=== PATIENT | male | born 1950 | race Caucasian/White ===

== ENCOUNTER 2022-05-13 13:39 | Inpatient (IN) | payer MEDICARE, MEDICAID, SELFPAY ==
[2022-05-13] VITALS (10 sets, daily range): BP systolic 150–178; BP diastolic 85–100; PULSE 68–76; RESP 14–18; TEMP 36.1–37.1; O2SAT 95–100
--- NOTE | 2022-05-13 | SCC_ITS ---
Procedure done: Application of multiplane external fixator. CPT code 33546 Repair of complex open wound right ankle and leg. CPT code 97416 and 23149 and 10340 29.8 seconds of fluoroscopic guidance, for a cumulative dose of 0.92 mGy, was provided to Dr. Scruggs by the radiology department. C-arm images of the RIGHT lower leg were saved for the patient's permanent record. [facility]
--- NOTE | 2022-05-13 | XR_ITS ---
WS: [id number] Exam: XR tibia fibula LT 2V [id number] Date/Time of Exam: 05/13/2022 12:00 AM Reason For Exam: external fixator. There are 2 anterior posterior intraoperative images of the left lower leg submitted for evaluation. The first image depicts external fixator pins overlying the midshaft of the tibia. The second image visualizes the ankle and again shows fractures of the medial malleolus and lower metadiaphysis of the tibia. There may be an external fixator screw in the region of the calcaneus. No other significant f inding on this limited series.
--- NOTE | 2022-05-13 | SCC_ITS ---
Procedure done: Removal of external fixator, left lower extremity under anesthesia. CPT code 13646 Open reduction internal fixation left trimalleolar fracture. CPT 48211 1.16 minutes of fluoroscopic guidance, for a cumulative dose of 2.326 mGy, was provided to Dr. Scruggs by the radiology department. C-arm images of the LEFT tibia fibula were saved for the patient's permanent record. [facility]
--- NOTE | 2022-05-13 13:41 | XR_ITS ---
WS: [id number] Exam: XR ankle LT 2V [id number] Date/Time of Exam: 05/13/2022 1:41 PM Reason For Exam: injury There is a trimalleolar fracture of the left ankle with medial dislocation of the tibia upon the xiomara r dome. Displaced fractures of the posterior tibial shelf, the medial malleolus and the lower fibular noted. The fracture may be open along the medial malleolus. XR/XR ankle LT 2V [id number] IMPRESSION: 1. Displaced trimalleolar fracture with medial dislocation of the tibia upon th e talar dome.
--- NOTE | 2022-05-13 14:00 | ECG_ITS ---
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 Measurements Intervals [place] Rate: 64 P: 61 [place]: 170 QRS: 18 QRSD: 98 T: 90 QT: 422 QTc: 435 Interpretive Statements SINUS RHYTHM WITH SINUS ARRHYTHMIA INTERPRETATION BASED ON A DEFAULT AGE OF 40 YEARS No previous ECG available for comparison Electronically Signed On 05-13-2022 22:52:51 CDT by Consuelo Foster M.D. [id number] f
[2022-05-13 14:02] LABS: Basophils % 0.3 %; Eosinophils % 0.2 %; Hematocrit 44.6 % (42.0-52.0); Hemoglobin 15.1 g/dL (11.7-16.6); Lymphocytes # 0.7 10^3/uL (0.8-4.8); Lymphocytes % 5.5 %; Mean Corpuscular HGB Conc 33.9 g/dL (30.0-36.0); Mean Corpuscular Hemoglobin 31.1 pg (28.0-34.0); Mean Corpuscular Volume 91.8 fl (80-94); Mean Platelet Volume 9.4 fL (7.4-10.4); Monocytes # 0.9 10^3/uL (0.2-0.9); Monocytes % 7.1 %; Neutrophils # 11.13 10^3/uL (1.8-7.7); Neutrophils % 85.8 %; Nucleated Red Blood Cells % 0 %; Platelet Count 309 10^3/cmm (130-400); Red Blood Count 4.86 10^6/uL (4.1-5.3); Red Cell Distribution Width 12.3 % (12.1-15.1)
[2022-05-13] MEDS: fentaNYL 50 mcg/mL INJ 2mL 100 MCG IVP (14:15)
[2022-05-13 14:22] LABS: INR 0.96 (0.8-1.2)
[2022-05-13 14:23] LABS: Partial Thromboplastin Time 27.6 SECONDS (23.9-36.7)
--- NOTE | 2022-05-13 14:23 | CT_ITS ---
WS: [id number] CT HEAD NONCONTRAST HISTORY: trauma TECHNIQUE: Contiguous axial imaging performed through the brain in 2.5 mm imaging. Bone and soft tiss ue windows. Sagittal and coronal reformats reviewed. All CT scans at [facility] use at least one of these dose optimization techniques: automated exposure control; mA and/or kV adjustment per pa tient size (includes targeted exams where dose is matched to clinical indication); or iterative recon struction. DLP: 2256.95 mGy.cm COMPARISON: None available. No acute intracranial hemorrhage, midline shift or mass effect. Mild atrophy and small vessel ischemic disease. No sulcal effacement or acute infarct. Ventricles: Normal size with no hydrocephalus. No inferior displacement of the cerebellar tonsils. Paranasal sinuses: Near complete opacification LEFT maxillary sinus from inflammatory disease. No fra ctures are identified. Mastoid air cells: Well pneumatized. Calvarium and scalp: Skull is intact with no soft tissue edema or swelling. CT/CT head wo con* [id number] IMPRESSION: 1. No acute intracranial hemorrhage or edema. 2. Mild atrophy and mild small vessel ischemic disease. 3. No skull fracture.
--- NOTE | 2022-05-13 14:23 | CT_ITS ---
WS: [id number] CT CHEST, ABDOMEN AND PELVIS WITH CONTRAST HISTORY: trauma TECHNIQUE: Contiguous 5 mm axial imaging performed through the chest, abdomen and pelvis with IV cont rast, oral contrast has not been provided. Coronal and sagittal reformats chest. Coronal and sagittal reformats through the abdomen and pelvis. All CT scans at [facility] use at least one of the se dose optimization techniques: automated exposure control; mA and/or kV adjustment per patient size (includes targeted exams where dose is matched to clinical indication); or iterative reconstruction. CONTRAST: Omnipaque 350; 95 mL IV. DLP: 2256.95 mGy.cm COMPARISON: None available. Chest CT: Hyperinflated lungs with emphysema. No pneumothorax. Mild bilateral pleural thickening and nodularity. 10 mm groundglass opacification anterior RIGHT upper lobe. Mild interstitial thickening t hroughout both lobes. Multiple nodules along the minor fissure. Bilateral lower lobe bronchial thicke adwoa and bronchiectasis. LEFT lower lobe soft tissue obstructing several the bronchi may be mucous pl ugging. Mild atherosclerosis aorta. No dissection or aneurysm. No aortic injury. Normal size pulmonar y artery. Proximal LEFT subclavian artery stenosis 30%. Mildly prominent mediastinal and hilar lymph nodes measuring up to 14 mm in diameter. This is probably reactive lymphoid tissue. Heart size is nor mal. No pericardial or pleural effusion. Abdomen CT: Small hiatal hernia. Liver and spleen are negative. Mild gallbladder wall thickening towa rds the fundus. No lacerations or injury. Pancreas and adrenal glands are negative. No renal obstruct ion. Several LEFT renal cysts. Mild atherosclerosis aorta. No injury. Heavy calcification within the SMA with a high-grade obstruction in the distal SMA. No ascites or free air. No adenopathy. No GI tract injury. No mesenteric hematoma. Pelvic CT: No free fluid or adenopathy in the pelvis. Very mild bladder wall thickening. Prostate gla nd central calcifications. Heavy calcifications continue into the iliac and femoral arteries. Nondisplaced left-sided rib fractures. Third and fourth rib fractures are in [address] Singl e fractures in the fifth and sixth rib on the LEFT. No spine fractures. CT/CT chest abd pel w con* IMPRESSION: 1. No abdominal hemorrhage or ascites. No liver or splenic laceration is ident ified. 2. Left-sided rib fractures. The LEFT third and fourth ribs are fractured in [address]. Single fractures in the LEFT fifth and sixth ribs. 3. Single anterior RIGHT third rib fracture. Closely associated with the focal pulmonary contusion in the anterior RIGHT upper lobe. 4. No spine fracture. 5. Lower lobe bronchiectasis with mucus plugging/soft tissue and branching seg ments of the LEFT lower lobe bronchus. 6. No pneumothorax. 7. No aortic injury identified. 8. Mesenteric and peripheral artery advanced atherosclerotic disease. Signific ant calcification in the SMA. Notified Dominic Peralta DO at 05/13/2022 3:19 PM.
--- NOTE | 2022-05-13 14:23 | CT_ITS ---
WS: [id number] CT CERVICAL SPINE HISTORY: trauma TECHNIQUE: Contiguous 2.5 mm axial imaging performed through the entire cervical spine. Sagittal and coronal reformats also performed. All CT scans at [facility] use at least one of these dose o ptimization techniques: automated exposure control; mA and/or kV adjustment per patient size (include s targeted exams where dose is matched to clinical indication); or iterative reconstruction. DLP: 2256.95 mGy.cm COMPARISON: None available. Mild RIGHT curvature cervical spine. Posterior cervical alignment is normal. Moderate degenerative di sc disease at C5-6 and C6-7. Craniocervical junction is normal. Lateral masses of C1 and C2 are align ed. The odontoid process is intact. Facet joints are normally aligned. Heavy calcification in the vertebral arteries. Moderate calcification in the cervical carotid arterie s C2-C3: Moderate RIGHT and mild LEFT facet arthritis and central disc protrusion. Mild LEFT foraminal narrowing. C3-C4: Moderate LEFT facet arthritis. C4-C5: Moderate bilateral facet joint arthritis. No stenosis. C5-C6: Severe LEFT and mild RIGHT facet arthritis. Moderate LEFT foraminal stenosis. C6-C7: Osteophytic ridging with moderate bilateral foraminal stenosis. C7-T1: Normal. Lung apices are clear. CT/CT cervical spin wo con* [id number] IMPRESSION: 1. No acute cervical spine fracture. 2. Moderate spondylitic changes and RIGHT curvature cervical spine. 3. Multilevel facet joint arthritis. 4. Vertebral artery calcifications.
[2022-05-13 14:26] LABS: Alanine Aminotransferase 24 U/L (0-41); Albumin Level 4.1 g/dL (3.5-5.2); Alkaline Phosphatase 98 U/L (40-130); Anion Gap 17.1 (5-19); Aspartate Amino Transferase 23 U/L (0-40); Blood Urea Nitrogen 26 mg/dL (8-23); Calcium 9.7 mg/dL (8.5-10.5); Carbon Dioxide 28 mmol/L (22-29); Chloride 98 mmol/L (98-107); Globulin 3.7 g/dL (1.3-4.6); Glomerular Filtration Rate 111.5 mL/min (90-130); Glucose 141 mg/dL (65-115); Osmolality Calculated 293 mOsm/kg (285-295); Potassium 5.1 mmol/L (3.5-5.1); Sodium 138 mmol/L (136-145); Total Bilirubin 0.8 mg/dL (0.15-1.2); Total Protein 7.8 g/dL (6.6-8.7)
[2022-05-13] MEDS: tetanus-dipt-pertussis 0.5 mL SDV IM (14:30)
[2022-05-13] MEDS: ceFAZolin 1,000 MG in sodium chloride 0.9% (plus) 50 ML 100 MG IV (14:30)
--- NOTE | 2022-05-13 14:34 | XR_ITS ---
WS: [id number] Exam: XR ankle LT 2V [id number] Date/Time of Exam: 05/13/2022 2:35 PM Reason For Exam: POST REDUCTION Comparison made with the earlier exam performed on the same day at 0145 hours. Previously noted talotibial dislocation has been reduced. Fractures of the medial lateral malleoli sh ow improved alignment. There is still some medial subluxation of the lower tibia upon the talar dome. Soft tissue air noted medially. XR/XR ankle LT 2V [id number] IMPRESSION: 1. Reduction of the talotibial dislocation. There is still some medial displace ment of the tibia upon the talar dome. Fractures of the lower fibula and medial malleolus show improved alignment since initial fracture images. 3. Soft tissue air noted in the region of the ankle mortise and the medial aspe ct of the ankle.
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
[2022-05-13] MEDS: iohexol 350 mg/mL 100 mL Btl IV (14:39)
--- NOTE | 2022-05-13 14:43 | P.CONIM_ITS ---
Providers/Reason For Consult Consulting Physician/Specialty*: Andrade Scruggs D.P.M. Reason for Consult*: Open left trimalleolar fracture Primary Care Provider: Hermann Red History of Present Illness History of Present Illness Beny Francis is a 71 year old male presented to the emergency department with complaints of a open left ankle fracture, was run over by a bull. 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 Last ate at 10 AM, had a Dr. Wang. Patient denies smoking history. Denies being diabetic. Denies any medical allergies. Denies any adverse reaction to anesthesia. History of appendectomy, no complications. Patient is on 10 mg of prednisone long-term for polyarthralgia. Denies loss of consciousness, denies syncopal episode. 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 History of rheumatoid arthritis. Review of Systems Const: Denies: fever(s), chills or fatigue Eyes: Denies: change in vision Card: Reports: swelling of feet/ankles; Denies: chest pain or palpitations Resp: Denies: dyspnea GI: Denies: abdominal pain, nausea, vomiting, diarrhea or constipation Musc: Reports: extremity pain Skin/Breast: Reports: sores and changes in skin color Neuro: Reports: difficulty walking; Denies: numbness in extremities Medications/Allergies Home Medications Medication Instructions Recorded Confirmed Last Taken Type azithromycin 250 mg tablet 250 mg PO DAILY 05/13/22 05/13/22 05/13/22 History ethambutol 400 mg tablet 800 mg PO DAILY 05/13/22 05/13/22 05/13/22 History prednisone 10 mg tablet 10 mg PO DAILY 05/13/22 05/13/22 05/13/22 History rifampin 300 mg capsule See Rx Instructions .Route .COMPLEX 05/13/22 05/13/22 05/13/22 History Allergies Allergy/AdvReac Type Severity Reaction Status Date / Time No Known Allergies Allergy Verified 05/13/22 15:18 Current Medications Generic Name Dose Route Start Last Admin Trade Name Freq PRN Reason Stop Dose Admin Iohexol 0 ml 05/13/22 14:38 05/13/22 14:39 Iohexol 350 Mg/Ml 100 Ml Btl IV 05/13/22 14:39 95 ml ONCE ONE Administration PFSH Acute PFSH: Medical History (Updated 05/13/22 @ 15:50 by Andrade Scruggs DPM) Bronchiectasis Disaster Recovery Coordinator is Dr. Harshad Awad Pulmonary Mycobacterium avium complex (MAC) infection On azithromycin, ethambutol, rifampin since 06/2021 Rheumatoid arthritis Primarily involves knees Surgical History (Updated 05/13/22 @ 14:44 by Bia Molina MD) History of appendectomy Family History (Updated 05/13/22 @ 14:45 by Bia Molina MD) Denies family history of CAD (coronary artery disease) Anesthesia complication Bleeding disorder Social History (Updated 05/13/22 @ 14:44 by Bia Molina MD) Alcohol intake: current Alcohol intake frequency: few times a month Substance/Drug Use: never Lives independently: Yes Vitals/I&O/Wt Last Vital Signs Temp 98.2 F 05/13/22 13:42 Pulse 75 05/13/22 13:42 Resp 14 05/13/22 13:42 BP 178/90 05/13/22 13:42 Pulse Ox 99 05/13/22 13:42 O2 Del Method 05/13/22 13:42 Weight last 48 hrs Weight 145 lb Physical Exam Narrative: GENERAL: Patient is alert and oriented ?3 and in no acute distress. The following is a focused bilateral lower extremity exam. VASCULAR: Dorsalis pedis and posterior tibial arteries palpable +2. Capillary refill time less than 3 seconds to the distal hallux bilaterally. Calf is supple and nontender proximally and distally. No pedal edema appreciated. Pedal hair growth present. NEUROLOGICAL: Epicritic and protopathic sensations grossly intact to the lower extremities. +2 Achilles tendon reflex noted bilaterally. Negative Tinel sign upon percussion of lower extremity nerves. DERMATOLOGICAL: Left open fracture, tibia is displaced medially and exposed to skin with approximately 10 cm full-thickness skin tear with exposed bone. MUSCULOSKELETAL: Gross deformity of the left ankle, talus is completely out of the ankle mortise displaced laterally with the tibia medially protruding through skin. CARDIOVASCULAR: S1, S2, normal rate, normal rhythm. Dorsalis pedis and posterior tibial arteries palpable. LUNGS: Clear to auscltation, no use of acessory muscles, no crackles or wheezes. Data : 05/13/22 13:55 05/13/22 13:55 A&P Assessment and plan (1) Open trimalleolar fracture of left ankle: (2) Victim of trampling from animal: Plan 71-year-old male with open left trimalleolar fracture. Recommended irrigation, debridement and fracture reduction with stabilization via external fixator to the left lower extremity. Patient last ate at 10 AM, had a Dr. Wang I reviewed at length with the patient, the risks, potential complications, benefits, alternatives, expectations, and typical outcomes associated with the surgery. The risks and potential complications were explained in detail, inc luding but not limited to infection, wound dehiscence or soft tissue complications, bleeding and hematoma, chronic edema, neuritis or nerve damage producing numbness or chronic pain, CRPS, failure to relieve pain or worsening pain, thick / painful / unsightly scar, limited motion / stiffness, malposition, delayed union, malunion, or nonunion, fracture, reaction to implants, anesthetic complications, venous thromboembolism, and deformity recurrence. I discussed the notion of no regrets with the patient as it pertains to complications and outcomes. The patient seemed to understand the nature of the proposed care and required convalescence. They asked appropriate questions, answered to their satisfaction. They are aware no guarantees can be made as to a satisfactory outcome and they understand there may be other possible unforeseen complications or outcomes not listed here that will be treated accordingly if they arise. There were no written or implied guarantees given to the patient. They gave informed consent to proceed. Informed consent signed by patient and myself. I initialed his left lower extremity. Patient wishes to proceed. Will likely require staged procedure. Will begin with irrigation, debridement, reduction and external fixator application. Once soft tissue envelope is improved will plan for external fixator removal and ORIF. Consult Attestations Medical Necessity Statement: Left trimalleolar fracture. Open left ankle fracture. Coding Level of Care Code Acute [employer] for [facility] Diagnoses Open trimalleolar fracture of left ankle S82.852B Victim of trampling from animal W55.89XA
--- NOTE | 2022-05-13 14:54 | ED_ITS ---
HPI - Trauma General: Chief Complaint: Trauma Stated Complaint: left ankle fracture, bull altercation Source: patient Mode of arrival: EMS History of Present Illness: 71-year-old male presents emergency room via EMS he was trampled by a ball he has an open fracture of his left ankle on arrival its in a pillow splint is actually actively bleeding when I entered the room there is a puddle of blood coming off of the pillow splint. He is awake and alert he has several skin tears on his right arm and a small abrasion on right parietal area he denies any loss of consciousness. Denies any abdominal or chest pain. He is a smoker and drinker. He is currently being treated for Mycobacterium tuberculosis and has been on medicines for the last 10 months. MD complaint: other (Large animal trampoline) Onset (ago): minute(s) Loss of Consciousness: no Location - Extremities: Left: ankle Context: other (Large animal trampoline) Associated symptoms: Denies abdominal pain, back pain, chest pain, chills, confusion, cough, dental pain, diaphoresis, difficulty breathing, dizziness, epistaxis, fever(s), headache(s), nausea, seizures, short of breath, syncope, visual disturbances, vomiting or weakness Treatments prior to arrival: other (Pillow splint left ankle) Review of Systems Const: Denies: fever(s), chills or diaphoresis ENMT: Denies: dental pain or epistaxis Card: Denies: chest pain or syncope Resp: Denies: dyspnea, productive cough or non-productive cough GI: Denies: abdominal pain, nausea or vomiting : Denies: flank pain, dysuria, urinary frequency or urinary urgency Musc: Denies: back pain Skin/Breast: Denies: rash or pruritus Neuro: Denies: headache(s), dizziness or confusion PFSH ED PFSH: Medical History Bronchiectasis Bilingual Research Interviewer is Dr. Harshad Awad Pulmonary Mycobacterium avium complex (MAC) infection On azithromycin, ethambutol, rifampin since 06/2021 Rheumatoid arthritis Primarily involves knees Surgical History History of appendectomy Family History Denies family history of CAD (coronary artery disease) Anesthesia complication Bleeding disorder Social History Alcohol intake: current Alcohol intake frequency: few times a month Lives independently: Yes Physical Exam Const: COMMON NORMALS: no acute distress GENERAL APPEARANCE: cooperative and comfortable ORIENTATION/CONSCIOUSNESS: Yes awake, Yes oriented to person, Yes oriented to place and Yes oriented to time HENMT: COMMON NORMALS: normocephalic, atraumatic, hearing grossly normal bilaterally, external ears normal, EAC's normal, TM's normal bilaterally, Normal nasal mucous membranes and turbinates present, moist oral mucous membranes and oropharynx normal HEAD & SCALP: normocephalic and atraumatic NOSE: Normal nasal mucous membranes and turbinates present EXTERNAL EAR: Yes external ears normal EXTERNAL AUDITORY CANAL: EAC's normal TYMPANIC MEMBRANE: TM's normal bilaterally Eye: COMMON NORMALS: Equal, round and reactive pupils present, EOMs intact bilaterally, conjunctivae normal and no scleral icterus CONJUNCTIVA: Yes conjunctivae normal PUPIL: Yes Equal, round and reactive pupils present Neck/C-Spine: COMMON NORMALS: full ROM, no lymphadenopathy, supple and no JVD Resp: COMMON NORMALS: normal respiratory effort, No retractions, No use of accessory muscles and clear to auscultation bilaterally AUSCULTATION: clear to auscultation bilaterally Cardio: COMMON NORMALS: no JVD, regular rate, regular rhythm and No murmurs present (Cardio) RATE: regular rate RHYTHM: regular rhythm GI: COMMON NORMALS: Soft to palpation and No hepatosplenomegaly present AUSCULTATION: Yes normoactive bowel sounds PALPATION: Yes Soft to palpation, No Tenderness to palpation present (GI), No Guarding due to palpation present (GI) and Yes No hepatosplenomegaly present Extremity: OTHER: Open fracture of the left ankle with protruding distal tibia the entire articulating surface of the distal tibial that is exteriorized. There is dried blood and debris on the fracture. The dressing and splints placed by EMS were removed and evaluated. Large open laceration. See procedure note below Neuro: SENSORIUM/ORIENTATION: Yes oriented to person, Yes oriented to place and Yes oriented to time Skin: COMMON NORMALS: no rashes or lesions noted GENERAL SKIN EXAM: no rashes or lesions noted Procedures Orthopedic Fracture Reduction Fracture #1: Time Out Performed: Yes Side: left Fracture Reduction Location: other (Ankle) Analgesia: procedural sedation Technique: direct manipulation Post Reduction X-rays Demonstrate: anatomical reduction Post-reduction neuro exam: intact Post-reduction vascular exam: intact Splint Applied: Yes Patient Tolerated Procedure: well Additional Comments: Large open wound loose skin loosely approximated to maintain coverage on the bone. Running suture of 3-0 Vicryl. Orthopedic Splinting/Casting Injury #1: Side: left Lower Extremity Injury Location: ankle Lower Extremity Immobilizer: posterior splint Additional Comments: Splinted to maintain reduction prior to surgery. Procedural Sedation Indication: fracture/dislocation reduction Preparation: youth nutritional monitor applied, pulse oximeter, supplemental O2 applied and suction/airway equipment at bedside IV Etomidate dose (mg): 10 Patient Tolerated Procedure: well Complications: none Course Vital Signs: Vital signs: Vital Signs Temperature 98.2 F 05/22/22 15:06 Pulse Rate 80 05/22/22 15:06 Respiratory Rate 18 05/22/22 15:06 Blood Pressure 118/69 05/22/22 15:06 Pulse Oximetry 96 05/22/22 15:06 Oxygen Delivery Me thod 05/22/22 11:54 Oxygen Flow Rate 2 05/20/22 19:25 MDM - Trauma Medical Decision Making Open fracture reduced at the bedside with procedural sedation. Running suture of 3-0 Vicryl placed to approximate skin edges to help maintain reduction and reduce exposure of the fracture. Vaseline gauze and bandaging and posterior splint applied. Discussed with Dr. Scruggs he has seen the x-rays feels the reduction is adequate and recommends surgery. Hospitalist to consult and cleared for definitive surgical care this evening patient had eaten recently still have to wait a few hours before he can undergo surgery. Remainder of CT is unremarkable except for rib fractures which are not flail he has some pulmonary contusions I discussed with pulmonology patient has a history of bronchiectasis as well pulmonology is willing to follow the patient. Will admit to hospitalist pulmonology and podiatry to consult and follow. Medical Records I reviewed the patient's medical records. Lab Data I reviewed the patient's lab results. : 05/19/22 04:00 05/19/22 04:00 Radiology Impressions Cervical Spine CT 05/13/22 14:23 IMPRESSION: 1. No acute cervical spine fracture. 2. Moderate spondylitic changes and RIGHT curvature cervical spine. 3. Multilevel facet joint arthritis. 4. Vertebral artery calcifications. Chest/Abdomen/Pelvis CT 05/13/22 14:23 IMPRESSION: 1. No abdominal hemorrhage or ascites. No liver or splenic laceration is identified. 2. Left-sided rib fractures. The LEFT third and fourth ribs are fractured in [address]. Single fractures in the LEFT fifth and sixth ribs. 3. Single anterior RIGHT third rib fracture. Closely associated with the focal pulmonary contusion in the anterior RIGHT upper lobe. 4. No spine fracture. 5. Lower lobe bronchiectasis with mucus plugging/soft tissue and branching segments of the LEFT lower lobe bronchus. 6. No pneumothorax. 7. No aortic injury identified. 8. Mesenteric and peripheral artery advanced atherosclerotic disease. Significant calcification in the SMA. Notified Dominic Peralta DO at 05/13/2022 3:[address] 05/13/22 14:23 IMPRESSION: 1. No acute intracranial hemorrhage or edema. 2. Mild atrophy and mild small vessel ischemic disease. 3. No skull fracture. Ankle X-Ray 05/13/22 14:34 IMPRESSION: 1. Reduction of the talotibial dislocation. There is still some medial displacement of the tibia upon the talar dome. Fractures of the lower fibula and medial malleolus show improved alignment since initial fracture images. 3. Soft tissue air noted in the region of the ankle mortise and the medial aspect of the ankle. Laboratory Results WBC 13.0 10^3/uL (4.0-10.0) H 05/13/22 13:55 RBC 4.86 10^6/uL (4.1-5.3) 05/13/22 13:55 Hgb 15.1 g/dL (11.7-16.6) 05/13/22 13:55 Hct 44.6 % (42.0-52.0) 05/13/22 13:55 MCV 91.8 fl (80-94) 05/13/22 13:55 MCH 31.1 pg (28.0-34.0) 05/13/22 13:55 MCHC 33.9 g/dL (30.0-36.0) 05/13/22 13:55 RDW 12.3 % (12.1-15.1) 05/13/22 13:55 Plt Count 309 10^3/cmm (130-400) 05/13/22 13:55 MPV 9.4 fL (7.4-10.4) 05/13/22 13:55 Neut % (Auto) 85.8 % 05/13/22 13:55 Lymph % (Auto) 5.5 % 05/13/22 13:55 [place] % (Auto) 7.1 % 05/13/22 13:55 Eos % (Auto) 0.2 % 05/13/22 13:55 Baso % (Auto) 0.3 % 05/13/22 13:55 Neut # (Auto) 11.13 10^3/uL (1.8-7.7) H 05/13/22 13:55 Lymph # (Auto) 0.7 10^3/uL (0.8-4.8) L 05/13/22 13:55 [place] # (Auto) 0.9 10^3/uL (0.2-0.9) 05/13/22 13:55 Eos # (Auto) 0.0 10^3/uL (0.0-0.8) 05/13/22 13:55 Baso # (Auto) 0.0 10^3/uL (0.0-0.1) 05/13/22 13:55 Nucleated RBC % (auto) 0 % 05/13/22 13:55 Nucleated RBCs # 0.0 /100WBC 05/13/22 13:55 PT 13.10 SECONDS (12.1-14.9) 05/13/22 13:55 INR 0.96 (0.8-1.2) 05/13/22 13:55 APTT 27.6 SECONDS (23.9-36.7) 05/13/22 13:55 Sodium 138 mmol/L (136-145) 05/13/22 13:55 Sodium Cancelled 05/13/22 13:55 Potassium 5.1 mmol/L (3.5-5.1) 05/13/22 13:55 Potassium Cancelled 05/13/22 13:55 Chloride 98 mmol/L (98-107) 05/13/22 13:55 Chloride Cancelled 05/13/22 13:55 Carbon Dioxide 28 mmol/L (22-29) 05/13/22 13:55 Carbon Dioxide Cancelled 05/13/22 13:55 Anion Gap 17.1 (5-19) 05/13/22 13:55 Anion Gap Cancelled 05/13/22 13:55 BUN 26 mg/dL (8-23) H 05/13/22 13:55 BUN Cancelled 05/13/22 13:55 Creatinine 0.7 mg/dL (0.7-1.2) 05/13/22 13:55 Creatinine Cancelled 05/13/22 13:55 GFR Calculation 111.5 mL/min (90-130) 05/13/22 13:55 GFR Calculation Cancelled 05/13/22 13:55 Glucose 141 mg/dL (65-115) H 05/13/22 13:55 Glucose Cancelled 05/13/22 13:55 Calculated Osmolality 293 mOsm/kg (285-295) 05/13/22 13:55 Calculated Osmolality Cancelled 05/13/22 13:55 Calcium 9.7 mg/dL (8.5-10.5) 05/13/22 13:55 Calcium Cancelled 05/13/22 13:55 Total Bilirubin 0.8 mg/dL (0.15-1.2) 05/13/22 13:55 AST 23 U/L (0-40) 05/13/22 13:55 ALT 24 U/L (0-41) 05/13/22 13:55 Alkaline Phosphatase 98 U/L (40-130) 05/13/22 13:55 Creatine Kinase 222 U/L (39-308) 05/13/22 13:55 Total Protein 7.8 g/dL (6.6-8.7) 05/13/22 13:55 Albumin 4.1 g/dL (3.5-5.2) 05/13/22 13:55 Globulin 3.7 g/dL (1.3-4.6) 05/13/22 13:55 Discharge Plan Discharge Patient Disposition: Admitted As Inpatient Admit Provider: Bia Molina Clinical Impression: Dislocation of ankle, left, open, Multiple rib fractures, Pulmonary contusion, 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
[2022-05-13] MEDS: sodium chloride 0.9% 1,000 ML 999 ML IV (14:57)
--- NOTE | 2022-05-13 15:54 | W.PM.OPSUD ---
Surgery/Procedure H&P Update DATE OF PROCEDURE: May 13, 2022 DATE H&P PERFORMED: 05/13/22 CHANGES TO PREVIOUS DOCUMENTATION: none PLANNED PROCEDURE: Operation Date: 05/13/22 15:30 Proposed Procedures p External Fixator Ankle(Left) - Andrade Scruggs DPM
--- NOTE | 2022-05-13 16:06 | ANES.PREANE2 ---
Pre-Anesthetic Assessment Height/Weight: Weight 65.771 kg Temp Pulse Resp BP Pulse Ox O2 Del Method 97.0 F L 72 18 165/100 95 05/13/22 15:50 05/13/22 15:50 05/13/22 15:50 05/13/22 15:50 05/13/22 15:50 05/13/22 15:50 Operation Date: 05/13/22 15:30 Proposed Procedures p External Fixator Ankle(Left) - Andrade Scruggs DPM Familial anesthetic complications: none Was Beta Shaan taken within 24 hours: N/A Was Clonidine taken within 24 hours: N/A Last intake: Intake Last Liquid Date 05/13/22 Last Liquid Time 10:00 Last Solid Date 05/12/22 Last Solid Time 22:00 Social No alcohol and No tobacco (h/o smoking) Exam alert, oriented x 3, clear to auscultation bilaterally and regular rate & rhythm Airway Submandibular: within normal limits Cervical ROM: within normal limits Mallampati: Class II Dentition: false Pulmonary Chronic Obstructive Pulmonary Disease Mycobacterium AC, bronchiectasis Metabolic chronic steroids [facility] [place] Rheumatoid Arthritis Anesthetic Plan ASA status: 3 Anesthesia: General and Regional (specify below) (popliteal blk for postop pain control) Medications/Allergies Home Medications Medication Instructions Recorded Confirmed Last Taken Type azithromycin 250 mg tablet 250 mg PO DAILY 05/13/22 05/13/22 05/13/22 History ethambutol 400 mg tablet 400 mg PO BID 05/13/22 05/13/22 05/13/22 History prednisone 10 mg tablet 10 mg PO DAILY 05/13/22 05/13/22 05/13/22 History rifampin 300 mg capsule 300 mg PO DAILY 05/13/22 05/13/22 05/13/22 History Allergies Allergy/AdvReac Type Severity Reaction Status Date / Time No Known Allergies Allergy Verified 05/13/22 15:18 Current Medications Generic Name Dose Route Start Last Admin Trade Name Freq PRN Reason Stop Dose Admin Sodium Chloride 1,000 mls @ 30 mls/hr 05/13/22 15:30 05/13/22 15:39 Sodium Chloride 0.9% IV 05/14/22 15:29 Not Given .Q24H YOLANDE PFSH Anesthesia Medical History (Updated 05/13/22 @ 15:50 by Andrade Scruggs, DPM) 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 Harshad Awad Pulmonary Mycobacterium avium complex (MAC) infection On azithromycin, ethambutol, rifampin since 06/2021 Rheumatoid arthritis Primarily involves knees Surgical History (Updated 05/13/22 @ 14:44 by Bia Molina MD) History of appendectomy Family History (Updated 05/13/22 @ 14:45 by Bia Molina MD) Denies family history of CAD (coronary artery disease) Anesthesia complication Bleeding disorder Social History (Updated 05/13/22 @ 14:44 by Bia Molina MD) Alcohol intake: current Alcohol intake frequency: few times a month Substance/Drug Use: never Lives independently: Yes Data Anesthesia : 05/13/22 13:55 05/13/22 13:55 Short CBC 05/13/22 Range/Units 13:55 WBC 13.0 H (4.0-10.0) 10^3/uL Hgb 15.1 (11.7-16.6) g/dL Hct 44.6 (42.0-52.0) % MCV 91.8 (80-94) fl Plt Count 309 (130-400) 10^3/cmm Neut % (Auto) 85.8 % Neut # (Auto) 11.13 H (1.8-7.7) 10^3/uL BMP 05/13/22 05/13/22 13:55 13:55 Sodium Cancelled 138 Potassium Cancelled 5.1 Chloride Cancelled 98 Carbon Dioxide Cancelled 28 BUN Cancelled 26 H Creatinine Cancelled 0.7 Glucose Cancelled 141 H Calcium Cancelled 9.7 Liver Function 05/13/22 Range/Units 13:55 Total Bilirubin 0.8 (0.15-1.2) mg/dL AST 23 (0-40) U/L ALT 24 (0-41) U/L Alkaline Phosphatase 98 (40-130) U/L Albumin 4.1 (3.5-5.2) g/dL Coags 05/13/22 13:55 PT 13.10 INR 0.96 APTT 27.6 Cardiac Studies: No Data to Display
--- NOTE | 2022-05-13 17:52 | ANES.PROC ---
Anesthesia Procedures Procedure/Date: 05/13/22 Nerve Block ^: Nerve Block 1: Main Anesthesia: general anesthesia Time Out Performed: Yes Consent: requested by attending/covering physician, from patient, risks and benefits reviewed and patient agrees to proceed Nerve block location: popliteal (left) Anesthesia monitors applied: pulse oximetry, EKG, BP cuff and oxygen Nerve block position: supine Anesthetic Used: ropivicaine 0.5% Amount of anesthesia used (mL): 30 Ultrasound used to: recognize landmarks Nerve Stimulator Used?: No Interscalene/Femoral BLK: 4 stimuplex 21 g needle used for position and inplane approach Injection: neg aspiration of heme Patient Tolerated Procedure: well Complications: none
--- NOTE | 2022-05-13 17:53 | ANE.PACU2 ---
Inpatient post-anesthesia follow up: Airway intact: Yes Vital signs: Temperature 97.1 F Pulse Rate 72 Respiratory Rate 18 Blood Pressure 159/94 Pulse Oximetry 98 Oxygen Delivery Me thod Simple Mask Oxygen Flow Rate 4 Fraction of Inspir ed Oxygen Hydration adequate: Yes Nausea and vomiting: No Pain level: 2 Mental status: Baseline
--- NOTE | 2022-05-13 17:59 | P.OP_ITS ---
Operative Report Date of procedure: May 13, 2022 Pre-op diagnosis: Open left trimalleolar fracture. Laceration with exposed bone right medial malleolus. Laceration exposed crural fascia left lateral leg. Post-op diagnosis: Same Post-op findings: Same as diagnosis Procedure done: Application of multiplane external fixator. CPT code 68341 Repair of complex open wound right ankle and leg. CPT code 26197 and 05997 and 40999 Implants: 3-0 Monocryl, 3-0 Prolene, 5 mm transaxial pin to external fixator, 3 mm pin hybrid to first metatarsal, Schanz pin x2 into the tibia. Specimens removed/disposition: None Pathology: None Surgeon: Andrade Scruggs D.P.M. [employer] Dean: [place] Estimated blood loss: 50 See intraoperative documentation IV fluids: None Urine output: None Complications: None Findings: Complicated wound exposed to bone at the left medial malleolus measures 13.5 cm. Complicated wound to the left lateral leg lateral to the lateral compartment with exposed peroneal muscle and tendon measures 5 cm. Brief History: Patient turned his back to a ball and was trampled, sustained a compound fracture to the left ankle with the tibia protruding medially through skin, additional laceration to the left lateral leg with exposed peroneal muscle and tendon. Recommended irrigation, debridement and fracture reduction with stabilization via external fixator to the left lower extremity. Patient last ate at 10 AM, had a Dr. Wang I reviewed at length with the patient, the risks, potential complications, benefits, alternatives, expectations, and typical outcomes associated with the surgery. The risks and potential complications were explained in detail, including but not limited to infection, wound dehiscence or soft tissue complications, bleeding and hematoma, chronic edema, neuritis or nerve damage producing numbness or chronic pain, CRPS, failure to relieve pain or worsening pain, thick / painful / unsightly scar, limited motion / stiffness, malposition, delayed union, malunion, or nonunion, fracture, reaction to implants, anesthetic complications, venous thromboembolism, and deformity recurrence.? I discussed the notion of no regrets with the patient as it pertains to complications and outcomes. The patient seemed to understand the nature of the proposed care and required convalescence. They asked appropriate questions, answered to their satisfaction. They are aware no guarantees can be made as to a satisfactory outcome and they understand there may be other possible unforeseen complications or outcomes not listed here that will be treated accordingly if they arise. There were no written or implied guarantees given to the patient. They gave informed consent to proceed. Informed consent signed by patient and myself.? I initialed his left lower extremity.? Patient wishes to proceed.? Will likely require staged procedure.? Will begin with irrigation, debridement, reduction and external fixator application.? Once soft tissue envelope is improved will plan for external fixator removal and ORIF. Procedure: Under mild sedation patient was brought to the operating room and placed onto the operating table in supine position. A timeout was performed. Anesthesia was then administered by the anesthesia service. Well-padded pneumatic tourniquet applied to the left high thigh. The left lower extremity was then scrubbed, prepped and draped utilizing normal aseptic technique. Left foot was elevated and tourniquet was inflated to 250 mmHg. Application of multiplane external fixator was performed first to stabilize the left ankle fracture and prevent further soft tissue damage followed by copious amounts of irrigation, debridement and complicated laceration/wound repair both at the medial malleolus and left lateral leg. Attention was directed to the left anterior tibial crest where 5 mm medially Schanz pin x2 self drilling self-tapping was advanced perpendicular to the longitudinal axis of the left leg and in line to allow a vector bisecting the tibia down to the second toe. 30 degree post was secured to Schanz pins and 2 carbon fiber tubes coursing distally followed by 5 mm transaxial calcaneal pin under fluoroscopy ankle was reduced to anatomic alignment within the mortise, improved medial malleolus fracture and improved lateral malleolus fracture appreciated. Talus was well within the confines of the mortise and fibula pulled out the length followed by tightening of the delta couplers to maintain length and anatomic alignment. Additional stability and a third port of fixation and triplane fashion a hybrid pin was advanced to the left first metatarsal base from medial to lateral and fixated with ankle and neutral dorsiflexion. The external fixator was fixated in the sagittal, transverse and frontal plane for triplane support followed by application of a kickstand. Confirmation of ankle joint reduction with talus within the mortise was achieved with AP view, mortise view and lateral view. All points of fixation were tightened securely. Attention was then directed to a complicated wound at the left medial malleolus which was irrigated with copious amounts of sterile skin solution. Wound measures 13.5 cm in length and is full-thickness down to bone, able to visualize the tibialis posterior tendon, flexor digitorum longus tendon as well as medial malleolus. The structures were identified, preserved and irrigated with copious amounts of sterile saline solution. The tendon sheath of the posterior tibial tendon and flexor digitorum longus tendon was then repaired and closed utilizing 3-0 Monocryl. Periosteum and crural fascia were reapproximated utilizing 3-0 Monocryl. A tributary of the saphenous vein was transected from the trauma. This was identified in the lumen tied off with 3-0 Monocryl. Subcutaneous tissue was then reapproximated utilizing 3-0 Monocryl and skin reapproximated utilizing 3-0 Prolene. Attention was then directed to the left lateral leg where a wound was appreciated in linear fashion measured 5 cm in length exposed to crural fascia was able to visualize peroneal muscles and tendons and after irrigation and exploration were noted to be intact. Crural fascia and subcutaneous tissue closed with 3-0 Monocryl and skin closed with 3-0 Prolene. The pin to skin interface was dressed with Adaptic at all sites, wound repair sites both medial and lateral at the left leg were dressed with Adaptic, sterile 4 x 4, ABD pad, Kiki and 4 inch Malik wrap. The tourniquet was deflated and a prompt hyperemic response was noted to the distal digits of the left foot. Patient tolerated the procedure and anesthesia well and was transferred to the PACU with vital signs stable and vascular status intact. Tetanus status was updated at the emergency department. He received 2 g of Ancef started in the emergency department. Admitted to hospital service, greatly appreciate hospitalist for medical management. Will continue IV antibiotics. Fracture is stable and lacerations are repaired. Will monitor for soft tissue improvement and staged out removal of external fixator and formal ORIF to be performed once soft tissue envelope is improved. Given the nature of his fracture and the [place] and open fracture with the distal tibia completely protruding through the skin patient is at risk for loss of limb and would be best served being transferred to a detention facility or rehab facility until definitive ORIF is performed and he is well on his way to recovery.
[2022-05-13] MEDS: sodium chloride 0.9% 1,000 ML 75 ML IV ×2 (18:33→22:21)
[2022-05-13 19:05] LABS: Creatine Phosphokinase 222 U/L (39-308)
[2022-05-13] MEDS: sennosides 8.6 mg Tablet 17.2 MG PO (19:46)
[2022-05-13] MEDS: docusate sodium 100 mg Capsule PO (19:46)
[2022-05-13] MEDS: HYDROcodone-acetaminophen 5-325 mg Tablet 1 TAB PO (19:47)
--- NOTE | 2022-05-13 21:48 | PC.NURSE ---
Patient refusing hernandez catheter at this time.
--- NOTE | 2022-05-13 22:10 | P.CONIM_ITS ---
Providers/Reason For Consult Consulting Physician/Specialty*: Awais Dumont MD/Pulmonolgy Reason for Consult*: Pulmonary contusion with rib fractures after mechanical f all Requesting Physician: Dr. Dominic Peralta Attending Physician: Bia Molina MD Primary Care Provider: Chetan Owens MD History of Present Illness History of Present Illness Beny Francis is a 71 year old male presented to the emergency room [place] He sustained an open fracture to his left lower extremity with extrusion of the distal tibia.?He did not lose consciousness.? He has some discomfort in his chest area but no current difficulty breathing.? Left ankle was reduced emergently in the ER.? Case was discussed with orthopedics and subsequently podiatry. Patient was taken to the OR for placement of multiplane external fixator and postoperatively admitted to medical floor for observation.CT imaging did reveal evidence of multiple left-sided rib fractures and pulmonary contusion. Pulmonology was consulted for pulmonary contusions left rib fractures post mechanical fall as well as history of bronchiectasis. He follows Dr. 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 Reported he did not have any exacerbations. Currently is not using any inhalers. He is on chronic steroid therapy for reported history of rheumatoid arthritis but predominantly affects the knees.? He is on chronic steroid therapy.? Patient is seen in [facility] floor post external fixator placement for his fractured left ankle. At bedside he appeared comfortable and did not appear in distress. He was saturating 100% on 2 L nasal cannula. He complained of vague pain in his left chest with shoulder extension, probably fractured rib pain may be masked by analgesia he received for his fracture. Otherwise denied any complaints. Review of Systems General: Reports: 10 or more systems reviewed and unremarkable except in HPI and below Medications/Allergies Home Medications Medication Instructions Recorded Confirmed Last Taken Type azithromycin 250 mg tablet 250 mg PO DAILY 05/13/22 05/13/22 05/13/22 History ethambutol 400 mg tablet 800 mg PO DAILY 05/13/22 05/13/22 05/13/22 History prednisone 10 mg tablet 10 mg PO DAILY 05/13/22 05/13/2205/13/22 History rifampin 300 mg capsule See Rx Instructions .Route .COMPLEX 05/13/22 05/13/22 05/13/22 History Allergies Allergy/AdvReac Type Severity Reaction Status Date / Time No Known Allergies Allergy Verified 05/13/22 15:18 Current Medications Generic Name Dose Route Start Last Admin Trade Name Freq PRN Reason Stop Dose Admin Hydrocodone Bitart/Acetaminophen 1 tab 05/13/22 15:22 05/13/22 19:47 Hydrocodone-Acetaminophen 5-325 Mg Tablet PO 1 tab Q4H PRN Administration MODERATE TO SEVERE PAIN Docusate Sodium 100 mg 05/13/22 18:00 05/13/22 19:46 Docusate Sodium 100 Mg Capsule PO 100 mg BID YOLANDE Administration Sodium Chloride 1,000 mls @ 75 mls/hr 05/13/22 15:30 05/13/22 18:33 Sodium Chloride 0.9% IV 05/14/22 18:09 75 mls/hr .[id number] YOLANDE Administration Senna 17.2 mg 05/13/22 21:00 05/13/22 19:46 Sennosides 8.6 Mg Tablet PO 17.2 mg BEDTIME YOLANDE Administration PFSH Acute PFSH: Medical History Bronchiectasis 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 Harshad Awad Pulmonary Mycobacterium avium complex (MAC) infection On azithromycin, ethambutol, rifampin since 06/2021 Rheumatoid arthritis Primarily involves knees Surgical History History of appendectomy Family History Denies family history of CAD (coronary artery disease) Anesthesia complication Bleeding disorder Social History Alcohol intake: current Alcohol intake frequency: few times a month Substance/Drug Use: never Lives independently: Yes Vitals/I&O/Wt Last Vital Signs Temp 98.8 F 05/13/22 20:00 Pulse 71 05/13/22 21:01 Resp 16 05/13/22 21:01 BP 150/87 05/13/22 20:00 Pulse Ox 100 05/13/22 21:01 O2 Del Method 05/13/22 21:01 O2 Flow Rate 2 05/13/22 21:01 05/13/22 05/13/22 05/13/22 06:59 14:59 22:59 Intake Total 35 / 35 0 / 35 Output Total 410 / 410 Balance 35 / 35 -410 / -375 Weight last 48 hrs Weight 145 lb Physical Exam Narrative: General: alert, lying in bed, not in acute distress HEENT: Right subconjunctival hemorrhage, EOMI, PERRL, mmm, Neck: supple, no meningismus Heme: no cervical LAP Pulmonary: Pain on palpation left lateral chest wall, CTAB, no wheezing, rhonchi, crackles Cardiovascular: rrr, nl s1s2, no mrg Abdomen: soft, nt, nd, no r/g, bs+ Extremities: pulses +, no edema, no c/c; external applicator placed on left ankle : no CVA tenderness Skin: intact, no rash MSK: no back or neck pain Neurologic: grossly intact Data : 05/14/22 03:45 05/14/22 03:45 Other Labs: Radiology Impressions Cervical Spine CT 05/13/22 14:23 IMPRESSION: 1. No acute cervical spine fracture. 2. Moderate spondylitic changes and RIGHT curvature cervical spine. 3. Multilevel facet joint arthritis. 4. Vertebral artery calcifications. Chest/Abdomen/Pelvis CT 05/13/22 14:23 IMPRESSION: 1. No abdominal hemorrhage or ascites. No liver or splenic laceration is identified. 2. Left-sided rib fractures. The LEFT third and fourth ribs are fractured in [address]. Single fractures in the LEFT fifth and sixth ribs. 3. Single anterior RIGHT third rib fracture. Closely associated with the focal pulmonary contusion in the anterior RIGHT upper lobe. 4. No spine fracture. 5. Lower lobe bronchiectasis with mucus plugging/soft tissue and branching segments of the LEFT lower lobe bronchus. 6. No pneumothorax. 7. No aortic injury identified. 8. Mesenteric and peripheral artery advanced atherosclerotic disease. Significant calcification in the SMA. Notified Dominic Peralta DO at 05/13/2022 3:[address] 05/13/22 14:23 IMPRESSION: 1. No acute intracranial hemorrhage or edema. 2. Mild atrophy and mild small vessel ischemic disease. 3. No skull fracture. Ankle X-Ray 05/13/22 14:34 IMPRESSION: 1. Reduction of the talotibial dislocation. There is still some medial displacement of the tibia upon the talar dome. Fractures of the lower fibula and medial malleolus show improved alignment since initial fracture images. 3. Soft tissue air noted in the region of the ankle mortise and the medial aspect of the ankle. Laboratory Results WBC 13.0 10^3/uL (4.0-10.0) H 05/13/22 13:55 RBC 4.86 10^6/uL (4.1-5.3) 05/13/22 13:55 Hgb 15.1 g/dL (11.7-16.6) 05/13/22 13:55 Hct 44.6 % (42.0-52.0) 05/13/22 13:55 MCV 91.8 fl (80-94) 05/13/22 13:55 MCH 31.1 pg (28.0-34.0) 05/13/22 13:55 MCHC 33.9 g/dL (30.0-36.0) 05/13/22 13:55 RDW 12.3 % (12.1-15.1) 05/13/22 13:55 Plt Count 309 10^3/cmm (130-400) 05/13/22 13:55 MPV 9.4 fL (7.4-10.4) 05/13/22 13:55 Neut % (Auto) 85.8 % 05/13/22 13:55 Lymph % (Auto) 5.5 % 05/13/22 13:55 [place] % (Auto) 7.1 % 05/13/22 13:55 Eos % (Auto) 0.2 % 05/13/22 13:55 Baso % (Auto) 0.3 % 05/13/22 13:55 Neut # (Auto) 11.13 10^3/uL (1.8-7.7) H 05/13/22 13:55 Lymph # (Auto) 0.7 10^3/uL (0.8-4.8) L 05/13/22 13:55 [place] # (Auto) 0.9 10^3/uL (0.2-0.9) 05/13/22 13:55 Eos # (Auto) 0.0 10^3/uL (0.0-0.8) 05/13/22 13:55 Baso # (Auto) 0.0 10^3/uL (0.0-0.1) 05/13/22 13:55 Nucleated RBC % (auto) 0 % 05/13/22 13:55 Nucleated RBCs # 0.0 /100WBC 05/13/22 13:55 PT 13.10 SECONDS (12.1-14.9) 05/13/22 13:55 INR 0.96 (0.8-1.2) 05/13/22 13:55 APTT 27.6 SECONDS (23.9-36.7) 05/13/22 13:55 Sodium 138 mmol/L (136-145) 05/13/22 13:55 Sodium Cancelled 05/13/22 13:55 Potassium 5.1 mmol/L (3.5-5.1) 05/13/22 13:55 Potassium Cancelled 05/13/22 13:55 Chloride 98 mmol/L (98-107) 05/13/22 13:55 Chloride Cancelled 05/13/22 13:55 Carbon Dioxide 28 mmol/L (22-29) 05/13/22 13:55 Carbon Dioxide Cancelled 05/13/22 13:55 Anion Gap 17.1 (5-19) 05/13/22 13:55 Anion Gap Cancelled 05/13/22 13:55 BUN 26 mg/dL (8-23) H 05/13/22 13:55 BUN Cancelled 05/13/22 13:55 Creatinine 0.7 mg/dL (0.7-1.2) 05/13/22 13:55 Creatinine Cancelled 05/13/22 13:55 GFR Calculation 111.5 mL/min (90-130) 05/13/22 13:55 GFR Calculation Cancelled 05/13/22 13:55 Glucose 141 mg/dL (65-115) H 05/13/22 13:55 Glucose Cancelled 05/13/22 13:55 Calculated Osmolality 293 mOsm/kg (285-295) 05/13/22 13:55 Calculated Osmolality Cancelled 05/13/22 13:55 Calcium 9.7 mg/dL (8.5-10.5) 05/13/22 13:55 Calcium Cancelled 05/13/22 13:55 Total Bilirubin 0.8 mg/dL (0.15-1.2) 05/13/22 13:55 AST 23 U/L (0-40) 05/13/22 13:55 ALT 24 U/L (0-41) 05/13/22 13:55 Alkaline Phosphatase 98 U/L (40-130) 05/13/22 13:55 Creatine Kinase 222 U/L (39-308) 05/13/22 13:55 Total Protein 7.8 g/dL (6.6-8.7) 05/13/22 13:55 Albumin 4.1 g/dL (3.5-5.2) 05/13/22 13:55 Globulin 3.7 g/dL (1.3-4.6) 05/13/22 13:55 A&P Assessment and plan (1) Multiple rib fractures: Qualifiers: Encounter type: initial encounter Fracture type: closed Laterality: left Qualified Code(s): S22.42XA - Multiple fractures of ribs, left side, initial encounter for closed fracture (2) Pulmonary contusion: Qualifiers: Encounter type: initial encounter Laterality: left Qualified Code(s): S27.321A - Contusion of lung, unilateral, initial encounter (3) Steroid dependence: (4) Pulmonary Mycobacterium avium complex (MAC) infection: (5) Bronchiectasis: Qualifiers: Bronchiectasis type: uncomplicated Qualified Code(s): J47.9 - Br onchiectasis, uncomplicated (6) Rheumatoid arthritis: Qualifiers: Laterality: bilateral Rheumatoid arthritis location: knee Rheumatoid factor presence: unspecified presence Qualified Code(s): M06.9 - Rheumatoid arthritis, unspecified (7) Victim of trampling from animal: Plan #Mechanical fall after being trampled by a bull-resultant injuries included left mandibular fracture, LEFT third and fourth ribs are fractured in [address]. Single fractures in the LEFT fifth and sixth ribs, Single anterior RIGHT third rib fracture, Closely associated with the focal pulmonary contusion in the anterior RIGHT upper lobe. -No pneumothorax, no spine fracture -Currently saturating 100% on 2 L nasal cannula -There is no evidence of flail chest and patient is not in respiratory distress -Monitor oxygenation and if patient desaturates or goes into respiratory distress-repeat chest x-ray to rule out pneumothorax -<20% cases with rib fractures without evidence of flail chest-can go into respiratory distress requiring intubation -Patient's pulmonary contusion is local and will continue monitoring respiratory status for now -Continue pain management for rib fractures and allow it to heal -currently patient is on morphine 4 mg IVP every 4 hours as needed and Pros[place]ity every 4 hours as needed #CT showed evidence of lower lobe bronchiectasis with mucus plugging/soft tissue and branching segments of the LEFT lower lobe bronchus. -Patient has history of bronchiectasis-secondary to MAC infection diagnosed by outside information coder -Since 2020 patient is on azithromycin 250 Mg p.o. daily, ethambutol 800 Mg p.o. daily and rifampin -Can continue patient's MAC treatments while admitted -Patient denied any exacerbations since starting treatment June 2021 -After discharge he will follow-up with his information coder -Hold off chest physical therapy/chest vest due to tenderness in left lateral chest wall due to rib fractures -Most probably a lower lobe bronchiectasis has mucous plugging-however he may need follow-up CT chest as outpatient to rule out endobronchial lesions and also follow-up on Multiple nodules along the minor fissure & Mildly prominent med iastinal and hilar lymph nodes measuring up to 14 mm in diameter.? -Mucomyst and hypertonic saline nebulization for airway clearance We will discuss recommendations with hospitalist taking care of the patient After 1 to 2 days observation-he can be discharged from pulmonary standpoint. He needs podiatry clearance prior to discharge Consult Attestations Medical Necessity Statement: Deferred to podiatry and hospitalist Time Spent in Patient Care: Greater than 35 minutes (>than 50% of time spent in counselling and/or direct pt care on unit) . 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
[2022-05-14] VITALS (9 sets, daily range): BP systolic 128–157; BP diastolic 59–79; PULSE 66–83; RESP 12–19; TEMP 36.3–37.3; O2SAT 97–100
[2022-05-14] MEDS: HYDROcodone-acetaminophen 5-325 mg Tablet 1 TAB PO ×3 (01:17→16:05)
[2022-05-14 01:19] LABS: Add Urine Microscopic? NO; Charge for UA Resulting for Rev
[2022-05-14 01:36] LABS: Urine Appearance Clear (CLEAR); Urine Color Yellow (Yellow)
[2022-05-14 01:37] LABS: Bilirubin Urine Neg (Negative); Blood Urine Neg (Negative); Glucose Urine UA Norm (Normal); Ketones Urine Negative (Negative); Leukocyte Esterase Urine Negative (Negative); Nitrate Urine Negative (Negative); Protein Urine Neg (Negative); Specific Gravity, Urine 1.015 (1.005-1.030); Urobilinogen Urine Norm (Negative); pH Urine 5 (5-7)
[2022-05-14 04:16] LABS: Basophils % 0.2 %; Eosinophils % 0.3 %; Hematocrit 33.1 % (42.0-52.0); Lymphocytes # 0.7 10^3/uL (0.8-4.8); Mean Corpuscular HGB Conc 33.2 g/dL (30.0-36.0); Mean Corpuscular Hemoglobin 30.9 pg (28.0-34.0); Mean Platelet Volume 9.9 fL (7.4-10.4); Monocytes # 0.8 10^3/uL (0.2-0.9); Monocytes % 12.8 %; Neutrophils # 4.86 10^3/uL (1.8-7.7); Neutrophils % 75.1 %; Nucleated Red Blood Cells % 0 %; Platelet Count 233 10^3/cmm (130-400); Red Blood Count 3.56 10^6/uL (4.1-5.3); Red Cell Distribution Width 12.5 % (12.1-15.1); White Blood Count 6.5 10^3/uL (4.0-10.0)
[2022-05-14 04:38] LABS: Anion Gap 12.9 (5-19); Blood Urea Nitrogen 17 mg/dL (8-23); Carbon Dioxide 25 mmol/L (22-29); Chloride 100 mmol/L (98-107); Glomerular Filtration Rate 133.2 mL/min (90-130); Glucose 110 mg/dL (65-115); Magnesium 1.6 mg/dL (1.7-2.3); Osmolality Calculated 280 mOsm/kg (285-295); Potassium 3.9 mmol/L (3.5-5.1); Sodium 134 mmol/L (136-145)
[2022-05-14 04:49] LABS: Creatine Phosphokinase 873 U/L (39-308)
--- NOTE | 2022-05-14 06:44 | P.PN_ITS ---
Subjective Subjective: Mr. Francis seen bedside this AM. 1 day status post irrigation and debridement, application of external fixator and wound repair left lower extremity secondary to open trimalleolar fracture. Patient denies any acute events overnight. Tolerating regular diet. States his pain is well controlled. Patient denies any subjective nausea, vomiting, fever, chills, shortness of breath or chest pain. Vitals/I&O/Wt Last Vital Signs Temp 98.6 F 05/14/22 04:00 Pulse 69 05/14/22 04:00 Resp 16 05/14/22 04:00 BP 147/62 05/14/22 04:00 Pulse Ox 99 05/14/22 04:00 O2 Del Method 05/14/22 00:00 O2 Flow Rate 2 05/13/22 21:01 05/13/22 05/13/22 05/14/22 14:59 22:59 06:59 Intake Total 35 / 35 285 / 320 Output Total 410 / 410 250 / 660 Balance 35 / 35 -125 / -90 -250 / -340 Weight last 48 hrs Weight 145 lb Physical Exam Narrative: GENERAL: Patient is alert and oriented ?3 and in no acute distress. The following is a focused bilateral lower extremity exam. VASCULAR: Dorsalis pedis and posterior tibial arteries palpable +2. Capillary refill time less than 3 seconds to the distal hallux bilaterally. Calf is supple and nontender proximally and distally. No pedal edema appreciated. Pedal hair growth present. NEUROLOGICAL: Epicritic and protopathic sensations grossly intact to the lower extremities. +2 Achilles tendon reflex noted bilaterally. Negative Tinel sign upon percussion of lower extremity nerves. DERMATOLOGICAL: Sutures are intact to the left medial ankle and left lateral leg. No periwound erythema, warmth or drainage. No necrosis of soft tissue margins. [place] healthy skin at skin to pin interface in the tibia, calcaneus and first metatarsal. No fracture blisters. MUSCULOSKELETAL: No gross deformity at the left ankle. Maintained alignment with external fixator intact. Data : 05/14/22 03:45 05/14/22 03:45 A&P Assessment and plan (1) Open trimalleolar fracture of left ankle: (2) Victim of trampling from animal: Plan 71-year-old male with open left trimalleolar fracture. Open left trimalleolar fracture.? Laceration with exposed bone right medial malleolus.? Laceration exposed crural fascia left lateral leg. Date of injury 05/13/2022, was trampled by a bull * 1 day status post irrigation, debridement, wound repair, application of multiplane external fixator. * Remain nonweightbearing to the left lower extremity and elevate left foot * Okay for prophylactic anticoagulants from surgical standpoint at this time * Will continue to evaluate soft tissue envelope and wounds. Optimistic that he can undergo ORIF later this week. * Tentatively scheduling removal of external fixator and ORIF of left ankle this 05/17/2022 after which she could potentially be transferred to snf facility at that time. 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
[2022-05-14] MEDS: pantoprazole DR 40 mg Tablet PO (09:52)
[2022-05-14] MEDS: predniSONE 10 mg Tablet PO (09:52)
[2022-05-14] MEDS: azithromycin 250 mg Tablet PO (09:52)
[2022-05-14] MEDS: docusate sodium 100 mg Capsule PO ×2 (09:52→17:36)
[2022-05-14] MEDS: cefTRIAXone 2,000 MG in sodium chloride 0.9% (plus) 50 ML 100 MG IV ×2 (09:53→19:34)
--- NOTE | 2022-05-14 10:07 | PM.PN ---
Subjective Subjective: Patient reports his pain is adequately controlled on his current regiment. Endorses thoracic and left lower extremity pain. He denies nausea, emesis, fevers, chills, chest pain or shortness of breath. Medications: Reviewed: Yes Vitals/I&O/Wt Last Vital Signs Temp 98.3 F 05/14/22 07:50 Pulse 80 05/14/22 09:40 Resp 18 05/14/22 09:40 BP 135/59 05/14/22 07:50 Pulse Ox 98 05/14/22 09:40 O2 Del Method 05/14/22 09:40 O2 Flow Rate 2 05/14/22 09:40 05/13/22 05/14/22 05/14/22 22:59 06:59 14:59 Intake Total 285 / 320 Output Total 410 / 410 425 / 835 Balance -125 / -90 -425 / -515 Weight last 48 hrs Weight 65.771 kg Physical Exam Narrative: General: Patient is awake and alert. Frail-appearing. Head: Normocephalic. Atraumatic. EOM intact. Neck: No JVD. Cardiovascular: RRR. Chest wall tender to palpation. No gallops. No murmurs. No peripheral edema. Lungs: Breath sounds are diminished bilateral bases. No use of accessory muscles, no crackles or wheezes. Skin: No jaundice. Laceration on right arm. Laceration behind the right ear. Abdomen: Normal bowel sounds, abdomen soft and nontender. Genito Urinary: Genital exam not performed since complaints not related. Rectal: Rectal exam not performed since no symptoms indicated blood loss. Extremities: No cyanosis or clubbing. There is left lower extremity and foot have an Ex-Fix in place and is wrapped with gauze and bandages. Musculoskeletal: Muscle mass appropriate for his age. Neurological: Moves all 4 extremities. No myoclonus. Data : 05/14/22 03:45 05/14/22 03:45 A&P Assessment and plan (1) Open fibular fracture: With open left bimalleolar fracture With laceration with exposed bone to the right medial malleolus With laceration exposed peripheral fascia left lateral leg Status post tetanus shot in the ED Status post application of multiplane external fixator and repair of complex open wound on 05/13 Podiatry following Nonweightbearing on left lower extremity Barreto catheter DVT prophylaxis when approved by surgery Start ceftriaxone and Flagyl SCD to right lower extremity Bowel regiment Multimodal pain control High risk for complications Disposition to be determined Qualifiers: Encounter type: initial encounter Fibula location: shaft Open fracture type: open type III Fracture morphology: comminuted Fracture alignment: displaced Laterality: left Qualified Code(s): S82.452C - Displaced comminuted fracture of shaft of left fibula, initial encounter for open fracture type IIIA, IIIB, or IIIC (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 (3) Dislocation of ankle, left, open: S/P reduction in ED Qualifiers: Encounter type: initial encounter Qualified Code(s): S93.05XA - Dislocation of left ankle joint, initial encounter; S91.002A - Unspecified open wound, left ankle, initial encounter (4) Pulmonary contusion: Left sided, secondary to bull trauma Pulmonary toilet Pulmonary consulted, appreciate recommendations Qualifiers: Encounter type: initial encounter Laterality: left Qualified Code(s): S27.321A - Contusion of lung, unilateral, initial encounter (5) Multiple rib fractures: Left sided, secondary to bull trauma Multimodal pain control Qualifiers: Encounter type: initial encounter Fracture type: closed Laterality: left Qualified Code(s): S22.42XA - Multiple fractures of ribs, left side, initial encounter for closed fracture (6) Multiple lacerations: Several lacerations on right arm, laceration on right posterior auricular area/occiput as a result of bull encounter (7) Steroid dependence: On chronic prednisone 10 mg daily for history of rheumatoid arthritis Low threshold for stress dose steroids (8) Rheumatoid arthritis: Primarily affecting knees per patient Continue stress dose steroids Qualifiers: Rheumatoid arthritis location: knee Rheumatoid factor presence: unspecified presence Laterality: bilateral Qualified Code(s): M06.9 - Rheumatoid arthritis, unspecified (9) Bronchiectasis: Not currently exacerbated Has been evaluated by pulmonology Qualifiers: Bronchiectasis type: uncomplicated Qualified Code(s): J47.9 - Bronchiectasis, uncomplicated (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 glucose 110 No reported history of diabetes mellitus Monitor blood sugar (12) Hypomagnesemia: Replace magnesium Plan DVT prophylaxis: SCD CODE STATUS: Full code Attestations Medical Necessity Statement*: Patient admitted for traumatic open trimalleolar fracture and complex wound requiring IV antibiotics, external fixation, podiatry expertise, and IV analgesics with expected hospitalization to cross 2 midnights. 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 Y92.79 Dislocation of ankle, left, open S93.05XA; S91.002A Encounter type: initial encounter Pulmonary contusion S27.321A Encounter type: initial encounter Laterality: left Multiple rib fractures S22.42XA Encounter type: initial encounter Fracture type: closed Laterality: left Multiple lacerations T07.XXXA Steroid dependence F19.20 Rheumatoid arthritis M06.9 Rheumatoid arthritis location: knee Rheumatoid factor presence: unspecified presence Laterality: bilateral Bronchiectasis J47.9 Bronchiectasis type: uncomplicated Pulmonary Mycobacterium avium complex (MAC) infection A31.0 Hyperglycemia R73.9 Hypomagnesemia E83.42
[2022-05-14] MEDS: metroNIDAZOLE IV 500 MG/100 ML PREMIX 100 MG IV ×2 (11:52→17:36)
[2022-05-14] MEDS: sennosides 8.6 mg Tablet 17.2 MG PO (19:35)
[2022-05-15] VITALS (10 sets, daily range): BP systolic 139–158; BP diastolic 70–84; PULSE 77–122; RESP 13–18; TEMP 36.8–37.1; O2SAT 94–99
[2022-05-15] MEDS: HYDROcodone-acetaminophen 5-325 mg Tablet 1 TAB PO ×5 (00:35→19:50)
[2022-05-15] MEDS: metroNIDAZOLE IV 500 MG/100 ML PREMIX 100 MG IV ×3 (00:42→17:42)
[2022-05-15 03:40] LABS: Basophils % 0.4 %; Eosinophils # 0.2 10^3/uL (0.0-0.8); Eosinophils % 2.2 %; Hematocrit 32.1 % (42.0-52.0); Hemoglobin 10.5 g/dL (11.7-16.6); Lymphocytes # 0.9 10^3/uL (0.8-4.8); Lymphocytes % 11.9 %; Mean Corpuscular HGB Conc 32.7 g/dL (30.0-36.0); Mean Corpuscular Hemoglobin 30.7 pg (28.0-34.0); Mean Corpuscular Volume 93.9 fl (80-94); Mean Platelet Volume 9.7 fL (7.4-10.4); Neutrophils # 5.34 10^3/uL (1.8-7.7); Nucleated Red Blood Cells % 0 %; Platelet Count 210 10^3/cmm (130-400); Red Blood Count 3.42 10^6/uL (4.1-5.3); Red Cell Distribution Width 12.3 % (12.1-15.1); White Blood Count 7.4 10^3/uL (4.0-10.0)
[2022-05-15 04:21] LABS: Albumin Level 2.9 g/dL (3.5-5.2); Anion Gap 13.7 (5-19); Blood Urea Nitrogen 9 mg/dL (8-23); Calcium 7.9 mg/dL (8.5-10.5); Carbon Dioxide 24 mmol/L (22-29); Chloride 102 mmol/L (98-107); Glomerular Filtration Rate 111.5 mL/min (90-130); Glucose 100 mg/dL (65-115); Magnesium 1.7 mg/dL (1.7-2.3); Phosphorus 2.6 mg/dL (2.5-4.5); Potassium 3.7 mmol/L (3.5-5.1); Sodium 136 mmol/L (136-145)
--- NOTE | 2022-05-15 08:03 | P.PN_ITS ---
Subjective Subjective: Patient was seen and examined this morning, was complaining of slight pain in the left lower extremity. Denied any chest pain shortness of breath. Medications: Reviewed: Yes Medication Review Details: Generic Name Dose Route Start Last Admin Trade Name Freq PRN Reason Stop Dose Admin Hydrocodone Bitart /Acetaminophen 1 tab 05/13/22 15:22 05/15/22 04:02 Hydrocodone-Acet aminophen 5-325 Mg Tablet PO 1 tab Q4H PRN Administration MODERATE TO SEVER E PAIN Acetylcysteine 100 mg 05/14/22 21:00 05/14/22 21:37 Acetylcysteine 2 00 Mg/Ml Sdv 4 Ml INHALATION Not Given Q12H YOLANDE Azithromycin 250 mg 05/14/22 09:00 05/14/22 09:52 Azithromycin 250 Mg Tablet PO 250 mg DAILY YOLANDE Administration Protocol Docusate Sodium 100 mg 05/13/22 18:00 05/14/22 17:36 Docusate Sodium 100 Mg Capsule PO 100 mg BID YOLANDE Administration Ethambutol HCl 800 mg 05/14/22 09:00 05/14/22 09:52 Ethambutol 400 M g Tablet PO 800 mg DAILY YOLANDE Administration Ceftriaxone Sodium 2,000 mg/ 50 mls @ 100 mls/ hr 05/14/22 08:00 05/14/22 20:33 Sodium Chloride IV Infused Q12H YOLANDE Infusion Protocol Metronidazole 500 mg in 100 mls @ 100 mls/hr 05/14/22 08:00 05/15/22 01:53 Flagyl Iv IV Infused Q8H YOLANDE Infusion Protocol Pantoprazole Sodiu m 40 mg 05/14/22 09:00 05/14/22 09:[address] 40 Mg Tablet PO 40 mg DAILY YOLANDE Administration Prednisone 10 mg 05/14/22 09:00 05/14/22 09:52 Prednisone 10 Mg Tablet PO 10 mg DAILY YOLANDE Administration Senna 17.2 mg 05/13/22 21:00 05/14/22 19:35 Sennosides 8.6 M g Tablet PO 17.2 mg BEDTIME YOLANDE Administration Vitals/I&O/Wt Last Vital Signs Temp 98.3 F 05/15/22 04:00 Pulse 79 05/15/22 04:00 Resp 14 05/15/22 04:00 BP 149/72 05/15/22 04:00 Pulse Ox 98 05/15/22 04:00 O2 Del Method 05/15/22 04:00 O2 Flow Rate 2 05/15/22 04:00 05/14/22 05/15/22 05/15/22 22:59 06:59 14:59 Intake Total 786.25 / 2592.00 100 / 2692.00 Output Total 375 / 375 475 / 850 Balance 411.25 / 2217.00 -375 / 1842.00 Weight last 48 hrs Weight 65.771 kg Physical Exam Const: COMMON NORMALS: patient oriented x3 Resp: COMMON NORMALS: clear to auscultation bilaterally AUSCULTATION: clear to auscultation bilaterally Cardio: COMMON NORMALS: regular rate, regular rhythm, S1 normal heart sound present, S2 normal heart sound present, No gallops present (Cardio), No murmurs present (Cardio), No rub (Cardio) and Peripheral pulses 2+ throughout RATE: regular rate RHYTHM: regular rhythm HEART SOUNDS: S1 normal heart sound present and S2 normal heart sound present PERIPHERAL PULSES: Peripheral pulses 2+ throughout GI: COMMON NORMALS: Normal to inspection, nondistended, normoactive bowel sounds present, Soft to palpation, non-tender, No hepatosplenomegaly present and no masses AUSCULTATION: Yes normoactive bowel sounds PALPATION: Yes Soft to palpation and Yes No hepatosplenomegaly present RECTAL EXAM: Yes deferred Extremity: COMMON NORMALS: no clubbing, cyanosis or edema and no pedal edema Neuro: COMMON NORMALS: patient oriented x3 Data : 05/15/22 03:24 05/15/22 03:24 A&P Assessment and plan (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 (2) Dislocation of ankle, left, open: S/P reduction in ED Qualifiers: Encounter type: initial encounter Qualified Code(s): S93.05XA - Dislocation of left ankle joint, initial encounter; S91.002A - Unspecified open wound, left ankle, initial encounter (3) Open fibular fracture: Going to OR today Qualifiers: Encounter type: initial encounter Fibula location: shaft Fracture alignment: displaced Fracture morphology: comminuted Laterality: left Open fracture type: open type III Qualified Code(s): S82.452C - Displaced comminuted fracture of shaft of left fibula, initial encounter for open fracture type IIIA, IIIB, or IIIC (4) Pulmonary contusion: Left sided, secondary to bull trauma Qualifiers: Encounter type: initial encounter Laterality: left Qualified Code(s): S27.321A - Contusion of lung, unilateral, initial encounter (5) Multiple rib fractures: Left sided, secondary to bull trauma Qualifiers: Encounter type: initial encounter Fracture type: closed Laterality: left Qualified Code(s): S22.42XA - Multiple fractures of ribs, left side, initial encounter for closed fracture (6) Multiple lacerations: Several to right arm, one to right posterior auricular area/occiput as a result of bull encounter (7) Steroid dependence: On prednisone 10 mg daily for history of rheumatoid arthritis (8) Rheumatoid arthritis: Primarily affecting knees per patient, on chronic steroids Qualifiers: Laterality: bilateral Rheumatoid arthritis location: knee Rheumatoid factor presence: unspecified presence Qualified Code(s): M06.9 - Rheumatoid arthritis, unspecified (9) Bronchiectasis: Not currently exacerbated Qualifiers: Bronchiectasis type: uncomplicated Qualified Code(s): J47.9 - Bronchiectasis, uncomplicated (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 He has been on treatment for Mycobacterium avium- intracellulare infection for 10 to 11 months and has no recent pulmonary symptoms. He does have arcus senilis but no known history of hyperlipidemia or cardiovascular disease. He has some azotemia but creatinine is currently stable . Inpatient admission Podiatry consultation for surgical intervention today Received tetanus shot in the emergency room Antibiotics perioperatively Pulmonary consultation Incentive spirometer As needed breathing treatments Continue prednisone with stress dosing as needed Continue home ethambutol, azithromycin and rifampin as scheduled IV fluids Monitor renal function Check urinalysis Recheck sugars tomorrow Pain control Antiemetics if needed Stool softeners Currently no pharmacological DVT prophylaxis secondary to need for emergent surgical intervention SCDs to right lower extremity PPI for GI prophylaxis Supportive care otherwise Will need to evaluate home setting and resources postoperatively to determine disposition plans. Anticipate he will likely have an external fixator with plan for additional surgery down the road. Plans were discussed with patient in terms of going emergently for surgery today and potential need to stress dose steroids and continuation of his usual antibiotic regimen for MAC. He was given an opportunity to ask questions Full code Attestations Medical Necessity Statement*: Patient is still in hospital left ankle fracture. 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.79 Dislocation of ankle, left, open S93.05XA; S91.002A Encounter type: initial encounter Open fibular fracture S82.452C Encounter type: initial encounter Fibula location: shaft Fracture alignment: displaced Fracture morphology: comminuted Laterality: left Open fracture type: open type III Pulmonary contusion S27.321A Encounter type: initial encounter Laterality: left Multiple rib fractures S22.42XA Encounter type: initial encounter Fracture type: closed Laterality: left Multiple lacerations T07.XXXA Steroid dependence F19.20 Rheumatoid arthritis M06.9 Laterality: bilateral Rheumatoid arthritis location: knee Rheumatoid factor presence: unspecified presence Bronchiectasis J47.9 Bronchiectasis type: uncomplicated Pulmonary Mycobacterium avium complex (MAC) infection A31.0
[2022-05-15] MEDS: cefTRIAXone 2,000 MG in sodium chloride 0.9% (plus) 50 ML 100 MG IV ×2 (08:28→19:47)
[2022-05-15] MEDS: pantoprazole DR 40 mg Tablet PO (08:30)
[2022-05-15] MEDS: docusate sodium 100 mg Capsule PO ×2 (08:30→17:42)
[2022-05-15] MEDS: azithromycin 250 mg Tablet PO (08:31)
[2022-05-15] MEDS: predniSONE 10 mg Tablet PO (08:31)
[2022-05-15] MEDS: rifAMPin 300 mg Capsule 600 MG PO (08:33)
[2022-05-15] MEDS: ipratropium-albuterol 3 mL Neb INHALATION (09:33)
[2022-05-15] MEDS: sodium chloride 3.5% neb 4 mL Neb INHALATION ×2 (09:34→19:40)
[2022-05-15] MEDS: acetylcysteine 200 mg/mL SDV 4 mL 100 MG INHALATION ×2 (09:34→21:27)
[2022-05-15] MEDS: sennosides 8.6 mg Tablet 17.2 MG PO (19:51)
[2022-05-16] VITALS (9 sets, daily range): BP systolic 115–153; BP diastolic 68–80; PULSE 69–87; RESP 13–18; TEMP 36.7–36.9; O2SAT 93–96
[2022-05-16] MEDS: metroNIDAZOLE IV 500 MG/100 ML PREMIX 100 MG IV ×3 (02:31→17:01)
[2022-05-16] MEDS: HYDROcodone-acetaminophen 5-325 mg Tablet 1 TAB PO ×5 (02:35→21:12)
[2022-05-16] MEDS: ipratropium-albuterol 3 mL Neb INHALATION (08:01)
[2022-05-16] MEDS: sodium chloride 3.5% neb 4 mL Neb INHALATION ×2 (08:01→21:13)
[2022-05-16] MEDS: acetylcysteine 200 mg/mL SDV 4 mL 100 MG INHALATION ×2 (08:01→21:13)
[2022-05-16] MEDS: cefTRIAXone 2,000 MG in sodium chloride 0.9% (plus) 50 ML 100 MG IV ×2 (08:16→20:28)
[2022-05-16] MEDS: docusate sodium 100 mg Capsule PO ×2 (08:17→17:00)
[2022-05-16] MEDS: bisacodyl 5 mg Tablet 10 MG PO (08:18)
[2022-05-16] MEDS: pantoprazole DR 40 mg Tablet PO (08:18)
[2022-05-16] MEDS: predniSONE 10 mg Tablet PO (08:18)
[2022-05-16] MEDS: azithromycin 250 mg Tablet PO (09:46)
--- NOTE | 2022-05-16 09:59 | PC.SOCIAL ---
IMM update Imm updated with patient at bedside, copy of page 2 provided. patient verbalized understanding. Copy in chart initialed, dated and timed.
--- NOTE | 2022-05-16 11:52 | PM.PN ---
Subjective Subjective: Patient was seen and examined this morning, pain is better controlled, anxious to go home. Due for ORIF in the a.m. Medications: Reviewed: Yes Medication Review Details: Generic Name Dose Route Start Last Admin Trade Name Freq PRN Reason Stop Dose Admin Hydrocodone Bitart /Acetaminophen 1 tab 05/13/22 15:22 05/16/22 08:17 Hydrocodone-Acet aminophen 5-325 Mg Tablet PO 1 tab Q4H PRN Administration MODERATE TO SEVER E PAIN Acetylcysteine 100 mg 05/14/22 21:00 05/16/22 08:01 Acetylcysteine 2 00 Mg/Ml Sdv 4 Ml INHALATION 100 mg Q12H YOLANDE Administration Albuterol/Ipratrop ium 3 ml 05/13/22 15:28 05/16/22 08:01 Ipratropium-Albu terol 3 Ml Neb INHALATION 3 ml Q6H PRN Administration SHORTNESS OF SUN TH Azithromycin 250 mg 05/14/22 09:00 05/16/22 09:46 Azithromycin 250 Mg Tablet PO 250 mg DAILY YOLANDE Administration Protocol Bisacodyl 10 mg 05/13/22 15:22 05/16/22 08:18 Bisacodyl 5 Mg T ablet PO 10 mg DAILY PRN Administration Constipation (see protocol) Protocol Docusate Sodium 100 mg 05/13/22 18:00 05/16/22 08:17 Docusate Sodium 100 Mg Capsule PO 100 mg BID YOLANDE Administration Ethambutol HCl 800 mg 05/14/22 09:00 05/16/22 08:17 Ethambutol 400 M g Tablet PO 800 mg DAILY YOLANDE Administration Ceftriaxone Sodium 2,000 mg/ 50 mls @ 100 mls/ hr 05/14/22 08:00 05/16/22 09:46 Sodium Chloride IV Infused Q12H YOLANDE Infusion Protocol Metronidazole 500 mg in 100 mls @ 100 mls/hr 05/14/22 08:00 05/16/22 10:46 Flagyl Iv IV Infused Q8H YOLANDE Infusion Protocol Pantoprazole Sodiu m 40 mg 05/14/22 09:00 05/16/22 08:[address] 40 Mg Tablet PO 40 mg DAILY YOLANDE Administration Prednisone 10 mg 05/14/22 09:00 05/16/22 08:18 Prednisone 10 Mg Tablet PO 10 mg DAILY YOLANDE Administration Rifampin 600 mg 05/15/22 09:00 05/15/22 08:33 Rifampin 300 Mg Capsule PO 600 mg [id number] YOLANDE Administration Senna 17.2 mg 05/13/22 21:00 05/15/22 19:51 Sennosides 8.6 M g Tablet PO 17.2 mg BEDTIME YOLANDE Administration Sodium Chloride 4 ml 05/15/22 08:00 05/16/22 08:01 Sodium Chloride 3.5% Neb 4 Ml Neb INHALATION 4 ml BID.RESPIRATORY S CH Administration Vitals/I&O/Wt Last Vital Signs Temp 98.0 F 05/16/22 11:36 Pulse 85 05/16/22 11:36 Resp 15 05/16/22 11:36 BP 144/77 05/16/22 11:36 Pulse Ox 93 05/16/22 11:36 O2 Del Method 05/16/22 11:36 O2 Flow Rate 2 05/15/22 20:00 05/15/22 05/16/22 05/16/22 22:59 06:59 14:59 Intake Total 510 / 3350 300 / 3650 150 / 150 Output Total 400 / 600 700 / 1300 Balance 110 / 2750 -400 / 2350 150 / 150 Physical Exam Const: COMMON NORMALS: patient oriented x3 Resp: COMMON NORMALS: normal respiratory effort, No retractions, No use of accessory muscles and clear to auscultation bilaterally EFFORT & INSPECTION: Yes symmetric chest movement AUSCULTATION: clear to auscultation bilaterally Cardio: COMMON NORMALS: regular rate, regular rhythm, S1 normal heart sound present, S2 normal heart sound present, No gallops present (Cardio), No murmurs present (Cardio), No rub (Cardio) and Peripheral pulses 2+ throughout RATE: regular rate RHYTHM: regular rhythm HEART SOUNDS: S1 normal heart sound present and S2 normal heart sound present PERIPHERAL PULSES: Peripheral pulses 2+ throughout GI: COMMON NORMALS: Normal to inspection, nondistended, normoactive bowel sounds present, Soft to palpation, non-tender, No hepatosplenomegaly present and no masses AUSCULTATION: Yes normoactive bowel sounds PALPATION: Yes Soft to palpation and Yes No hepatosplenomegaly present RECTAL EXAM: Yes deferred Extremity: COMMON NORMALS: no clubbing, cyanosis or edema and no pedal edema Neuro: COMMON NORMALS: patient oriented x3 Data : 05/15/22 03:24 05/15/22 03:24 A&P Assessment and plan (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 (2) Dislocation of ankle, left, open: S/P reduction in ED Qualifiers: Encounter type: initial encounter Qualified Code(s): S93.05XA - Dislocation of left ankle joint, initial encounter; S91.002A - Unspecified open wound, left ankle, initial encounter (3) Open fibular fracture: S/p multiplane external fixator and repair of complex open wound on 05/13 NBW on left lower extremity Pain control Barreto catheter Going to OR in am for ORIF SCDs to right lower extremity Qualifiers: Encounter type: initial encounter Fibula location: shaft Fracture alignment: displaced Fracture morphology: comminuted Laterality: left Open fracture type: open type III Qualified Code(s): S82.452C - Displaced comminuted fracture of shaft of left fibula, initial encounter for open fracture type IIIA, IIIB, or IIIC (4) Pulmonary contusion: Left sided, secondary to bull trauma Qualifiers: Encounter type: initial encounter Laterality: left Qualified Code(s): S27.321A - Contusion of lung, unilateral, initial encounter (5) Multiple rib fractures: Left sided, secondary to bull trauma Qualifiers: Encounter type: initial encounter Fracture type: closed Laterality: left Qualified Code(s): S22.42XA - Multiple fractures of ribs, left side, initial encounter for closed fracture (6) Multiple lacerations: Several to right arm, one to right posterior auricular area/occiput as a result of bull encounter (7) Steroid dependence: On prednisone 10 mg daily for history of rheumatoid arthritis (8) Rheumatoid arthritis: Primarily affecting knees per patient, on chronic steroids Qualifiers: Laterality: bilateral Rheumatoid arthritis location: knee Rheumatoid factor presence: unspecified presence Qualified Code(s): M06.9 - Rheumatoid arthritis, unspecified (9) Bronchiectasis: Not currently exacerbated Qualifiers: Bronchiectasis type: uncomplicated Qualified Code(s): J47.9 - Bronchiectasis, uncomplicated (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 Dislocation of ankle, left, open S93.05XA; S91.002A Encounter type: initial encounter Open fibular fracture S82.452C Encounter type: initial encounter Fibula location: shaft Fracture alignment: displaced Fracture morphology: comminuted Laterality: left Open fracture type: open type III Pulmonary contusion S27.321A Encounter type: initial encounter Laterality: left Multiple rib fractures S22.42XA Encounter type: initial encounter Fracture type: closed Laterality: left Multiple lacerations T07.XXXA Steroid dependence F19.20 Rheumatoid arthritis M06.9 Laterality: bilateral Rheumatoid arthritis location: knee Rheumatoid factor presence: unspecified presence Bronchiectasis J47.9 Bronchiectasis type: uncomplicated Pulmonary Mycobacterium avium complex (MAC) infection A31.0
--- NOTE | 2022-05-16 12:49 | PC.NURSE ---
Dr Scruggs changed drsg to left ankle
--- NOTE | 2022-05-16 13:48 | P.PN_ITS ---
Subjective Subjective: Mr. Francis seen bedside this AM. He is status post irrigation and debridement, application of external fixator and wound repair left lower extremity secondary to open trimalleolar fracture. Patient denies any acute events overnight. Tolerating regular diet. States his pain is well controlled. Patient denies any subjective nausea, vomiting, fever, chills, shortness of breath or chest pain. Vitals/I&O/Wt Last Vital Signs Temp 98.0 F 05/16/22 11:36 Pulse 85 05/16/22 11:36 Resp 15 05/16/22 11:36 BP 144/77 05/16/22 11:36 Pulse Ox 93 05/16/22 11:36 O2 Del Method 05/16/22 11:36 O2 Flow Rate 2 05/15/22 20:00 05/15/22 05/16/22 05/16/22 22:59 06:59 14:59 Intake Total 510 / 3350 300 / 3650 270 / 270 Output Total 400 / 600 700 / 1300 Balance 110 / 2750 -400 / 2350 270 / 270 Physical Exam Narrative: GENERAL: Patient is alert and oriented ?3 and in no acute distress. The following is a focused bilateral lower extremity exam. VASCULAR: Dorsalis pedis and posterior tibial arteries palpable +2. Capillary refill time less than 3 seconds to the distal hallux bilaterally. Calf is supple and nontender proximally and distally. No pedal edema appreciated. Pedal hair growth present. NEUROLOGICAL: Epicritic and protopathic sensations grossly intact to the lower extremities. +2 Achilles tendon reflex noted bilaterally. Negative Tinel sign upon percussion of lower extremity nerves. DERMATOLOGICAL: Sutures are intact to the left medial ankle and left lateral leg. No periwound erythema, warmth or drainage. No necrosis of soft tissue margins. [place] healthy skin at skin to pin interface in the tibia, calcaneus and first metatarsal. No fracture blisters. MUSCULOSKELETAL: No gross deformity at the left ankle. Maintained alignment with external fixator intact. Data : 05/15/22 03:24 05/15/22 03:24 A&P Assessment and plan (1) Open trimalleolar fracture of left ankle: Qualifiers: Encounter type: subsequent encounter Open fracture type: open type III Fracture healing: with routine healing Qualified Code(s): S82.852F - Displaced trimalleolar fracture of left lower leg, subsequent encounter for open fracture type IIIA, IIIB, or IIIC with routine healing (2) Victim of trampling from animal: Plan 71-year-old male with open left trimalleolar fracture. Open left trimalleolar fracture.? Laceration with exposed bone right medial malleolus.? Laceration exposed crural fascia left lateral leg. Date of injury 05/13/2022, was trampled by a bull * Performed irrigation, debridement, wound repair, application of multiplane external fixator on 05/13/2022 * Remain nonweightbearing to the left lower extremity and elevate left foot * Stable soft tissue appreciated clinically * Planned procedure tomorrow: Removal of external fixator and ORIF of left ankle tomorrow 05/17/2022. * N.p.o. 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
[2022-05-16] MEDS: sennosides 8.6 mg Tablet 17.2 MG PO (20:35)
[2022-05-17] VITALS (25 sets, daily range): BP systolic 109–161; BP diastolic 56–78; PULSE 67–89; RESP 14–21; TEMP 36.4–37.8; O2SAT 92–100
--- NOTE | 2022-05-17 | SCC_ITS ---
Procedure done: Removal of external fixator, left lower extremity under anesthesia. CPT code 14934 Open reduction internal fixation left trimalleolar fracture. CPT 71764 76 seconds of fluoroscopic guidance, for a cumulative dose of 2.3 mGy, was provided to Dr. Scruggs by the radiology department. C-arm images of the LEFT tibia fibula were saved for the patient's permanent record. [facility]
--- NOTE | 2022-05-17 | XR_ITS ---
WS: [id number] Left ankle, C-arm fluoroscopy views, 05/17/2022 Clinical Data: KEVIN PICS Comparison: Left ankle, 05/13/2022 Findings: There is a lateral plate fixed with multiple screws to reduce the distal left fibular fracture. There is a transverse screw between the distal left fibula and left tibia. There are oblique screws reduci ng the medial malleolar fracture. XR/XR ankle LT min 3V* [id number] Impression: Internal fixation of bimalleolar fracture of the left ankle.
[2022-05-17] MEDS: metroNIDAZOLE IV 500 MG/100 ML PREMIX 100 MG IV ×2 (02:29→17:31)
--- NOTE | 2022-05-17 07:43 | ANES.PREANE2 ---
Pre-Anesthetic Assessment Height/Weight: Height 1.8 m Weight 65.771 kg Temp Pulse Resp BP Pulse Ox O2 Del Method O2 Flow Rate 98.7 F 80 18 112/56 95 2 05/17/22 07:41 05/17/22 07:41 05/17/22 07:41 05/17/22 07:41 05/17/22 07:41 05/17/22 07:41 05/15/22 20:00 Preop Diagnosis: Open left trimalleolar fracture Operation Date: 05/13/22 15:30 Proposed Procedures p External Fixator Ankle(Left) - Andrade Scruggs DPM Operation Date: 05/17/22 08:30 Proposed Procedures p Ex Fix removal left ankle(Left) - Andrade Scruggs DPM s ORIF Ankle(Left) - Andrade Scruggs DPM Familial anesthetic complications: none Was Beta Shaan taken within 24 hours: N/A Was Clonidine taken within 24 hours: N/A Last intake: Intake Last Liquid Date 05/17/22 Last Liquid Time 00:00 Last Solid Date 05/16/22 Last Solid Time 22:00 Social No alcohol and No tobacco Exam alert, oriented x 3 and regular rate & rhythm Airway Submandibular: within normal limits Cervical ROM: within normal limits Mallampati: Class II Dentition: false Pulmonary Chronic Obstructive Pulmonary Disease MAC , bronchiectasis Metabolic chronic steroids Musc/skel Rheumatoid Arthritis Anesthetic Plan ASA status: 3 Anesthesia: General and Regional (specify below) (left pop blk) Medications/Allergies Home Medications Medication Instructions Recorded Confirmed Last Taken Type azithromycin 250 mg tablet 250 mg PO DAILY 05/13/22 05/13/22 05/13/22 History ethambutol 400 mg tablet 800 mg PO DAILY 05/13/22 05/13/22 05/13/22 History prednisone 10 mg tablet 10 mg PO DAILY 05/13/22 05/13/22 05/13/22 History rifampin 300 mg capsule See Rx Instructions .Route .COMPLEX 05/13/22 05/13/22 05/13/22 History Allergies Allergy/AdvReac Type Severity Reaction Status Date / Time No Known Allergies Allergy Verified 05/13/22 15:18 Current Medications Generic Name Dose Route Start Last Admin Trade Name Freq PRN Reason Stop Dose Admin Hydrocodone Bitart/Acetaminophen 1 tab 05/13/22 15:22 05/16/22 21:12 Hydrocodone-Acetaminophen 5-325 Mg Tablet PO 1 tab Q4H PRN Administration MODERATE TO SEVERE PAIN Acetylcysteine 100 mg 05/14/22 21:00 05/16/22 21:13 Acetylcysteine 200 Mg/Ml Sdv 4 Ml INHALATION 100 mg Q12H YOLANDE Administration Albuterol/Ipratropium 3 ml 05/13/22 15:28 05/16/22 08:01 Ipratropium-Albuterol 3 Ml Neb INHALATION 3 ml Q6H PRN Administration SHORTNESS OF BREATH Azithromycin 250 mg 05/14/22 09:00 05/16/22 09:46 Azithromycin 250 Mg Tablet PO 250 mg DAILY YOLANDE Administration Protocol Bisacodyl 10 mg 05/13/22 15:22 05/16/22 08:18 Bisacodyl 5 Mg Tablet PO 10 mg DAILY PRN Administration Constipation (see protocol) Protocol Docusate Sodium 100 mg 05/13/22 18:00 05/16/22 17:00 Docusate Sodium 100 Mg Capsule PO 100 mg BID YOLANDE Administration Ethambutol HCl 800 mg 05/14/22 09:00 05/16/22 08:17 Ethambutol 400 Mg Tablet PO 800 mg DAILY YOLANDE Administration Ceftriaxone Sodium 2,000 mg/ 50 mls @ 100 mls/hr 05/14/22 08:00 05/16/22 23:56 Sodium Chloride IV Infused Q12H YOLANDE Infusion Protocol Metronidazole 500 mg in 100 mls @ 100 mls/hr 05/14/22 08:00 05/17/22 03:40 Flagyl Iv IV Infused Q8H YOLANDE Infusion Protocol Pantoprazole Sodium 40 mg 05/14/22 09:00 05/16/22 08:[address] 40 Mg Tablet PO 40 mg DAILY YOLANDE Administration Prednisone 10 mg 05/14/22 09:00 05/16/22 08:18 Prednisone 10 Mg Tablet PO 10 mg DAILY YOLANDE Administration Rifampin 600 mg 05/15/22 09:00 05/15/22 08:33 Rifampin 300 Mg Capsule PO 600 mg [id number] YOLANDE Administration Senna 17.2 mg 05/13/22 21:00 05/16/22 20:35 Sennosides 8.6 Mg Tablet PO 17.2 mg BEDTIME YOLANDE Administration Sodium Chloride 4 ml 05/15/22 08:00 05/16/22 21:13 Sodium Chloride 3.5% Neb 4 Ml Neb INHALATION 4 ml BID.RESPIRATORY YOLANDE Administration [facility] Anesthesia Medical History Bronchiectasis Relocation Coordinator is Dr. Harshad Awad Pulmonary Mycobacterium avium complex (MAC) infection On azithromycin, ethambutol, rifampin since 06/2021 Rheumatoid arthritis Primarily involves knees Surgical History History of appendectomy Family History Denies family history of CAD (coronary artery disease) Anesthesia complication Bleeding disorder Social History Alcohol intake: current Alcohol intake frequency: few times a month Substance/Drug Use: never Lives independently: Yes Data Anesthesia : 05/15/22 03:24 05/15/22 03:24 Cardiac Studies: No Data to Display
--- NOTE | 2022-05-17 07:54 | W.PM.OPSUD ---
Surgery/Procedure H&P Update DATE OF PROCEDURE: May 17, 2022 DATE H&P PERFORMED: 05/13/22 CHANGES TO PREVIOUS DOCUMENTATION: None PREOP DIAGNOSIS: Open left trimalleolar fracture PLANNED PROCEDURE: Operation Date: 05/13/22 15:30 Proposed Procedures p External Fixator Ankle(Left) - Andrade Scruggs DPM Operation Date: 05/17/22 08:30 Proposed Procedures p Ex Fix removal left ankle(Left) - Andrade Scruggs DPM s ORIF Ankle(Left) - Andrade Scruggs DPM
[2022-05-17] MEDS: sodium chloride 0.9% 1,000 ML 30 ML IV (07:56)
[2022-05-17] MEDS: ceFAZolin 2,000 MG in sodium chloride 0.9% (plus) 50 ML 100 MG IV (08:08)
--- NOTE | 2022-05-17 08:24 | PC.NURSE ---
surgery Pt was taken down to surgery around 0730.
--- NOTE | 2022-05-17 08:46 | ANES.PROC ---
Documented by User: Enoch Hamilton Jr, SUPERVISOR INSPECTING 05/17/22 08:49 Anesthesia Procedures Procedure/Date: 05/17/22 Nerve Block ^: Nerve Block 1: Main Anesthesia: general anesthesia Time Out Performed: Yes Consent: requested by attending/covering physician, from patient, risks and benefits reviewed and patient agrees to proceed Nerve block location: popliteal (left) Anesthesia monitors applied: pulse oximetry, BP cuff and oxygen Nerve block position: supine Anesthetic Used: ropivicaine 0.5% Amount of anesthesia used (mL): 30 Ultrasound used to: recognize landmarks and other (Us visualization popliteal nerve) Nerve Stimulator Used?: No Interscalene/Femoral BLK: 4 stimuplex 21 g needle used for position and inplane approach, visualize local anesthetic spread and no vascular puncture identified Injection: neg aspiration of heme and paresthesia +/- (neg) Patient Tolerated Procedure: well Complications: none Documented by User: Clay Bejarano 05/17/22 16:20 Anesthesia Procedures Procedure/Date: 05/17/22
--- NOTE | 2022-05-17 11:00 | SUR.PHASEI ---
patient's lma removed by ophthalmic lens inspector on arrival to pacu.
--- NOTE | 2022-05-17 11:05 | PC.CHAP ---
Pastoral Care Encounter/Spiritual Assessment Type of Contact [] Declined equipment or machinery cleaner visit [] Patient/Family/Request visit [] Outpatient visit [] Follow-up visit [] Physician referral [] Code/Alert [x] Routine visit [] Staff referral [] Actively dying [] Patient sleeping [] Family support [] [x] Out of room [] Palliative care [] [] Receiving care in room [] Pre-surgical visit [] Trauma [] Long length of stay [] ICU visit [] Other: Relational/Emotional Strength [] Patient feels connected with others/family/visitors/staff [] Distress [] Loneliness/isolation [] Abandonment Spirituality of Patient [] Person of Stacey [] Attends Yarsanism of their Stacey [] Believes in Prayer [] Reads Bible or Spiritism materials [] There are Spiritual issues to be addressed Scientific Writer Interventions [] Prayer [] Active listening [] Non-anxious presence [] Spiritual/emotional support [] Crisis/trauma care [] Spiritual counseling [] Bereavement support [] Provided bereavement packet [] Provided Bible/devotional materials [] Provided toy/stuffed animal, coloring book to patient or family member [] Provided Communion [] Anointing/[place] [] Salvation [] Completed spiritual assessment [] Other: Impact on Illness or Injury [] Angry [] Fearful [] Anxious [] Often cries [] Exhaustion [] Unable to work [] Unable to attend nondenominational [] Unable to walk/stand [] Unable to read [] Unable to drive [] Unable to eat/drink [] Unable to sleep [] Unable to be with family [] Patient intubated [] Other: Summary Time spent with patient
--- NOTE | 2022-05-17 15:29 | PM.PN ---
Subjective Subjective: Patient went to the OR today for ORIF. No acute event overnight Medications: Reviewed: Yes Medication Review Details: Generic Name Dose Route Start Last Admin Trade Name Freq PRN Reason Stop Dose Admin Hydrocodone Bitart /Acetaminophen 1 tab 05/13/22 15:22 05/16/22 21:12 Hydrocodone-Acet aminophen 5-325 Mg Tablet PO 1 tab Q4H PRN Administration MODERATE TO SEVER E PAIN Acetylcysteine 100 mg 05/14/22 21:00 05/16/22 21:13 Acetylcysteine 2 00 Mg/Ml Sdv 4 Ml INHALATION 100 mg Q12H YOLANDE Administration Albuterol/Ipratrop ium 3 ml 05/13/22 15:28 05/16/22 08:01 Ipratropium-Albu terol 3 Ml Neb INHALATION 3 ml Q6H PRN Administration SHORTNESS OF SUN TH Azithromycin 250 mg 05/14/22 09:00 05/16/22 09:46 Azithromycin 250 Mg Tablet PO 250 mg DAILY YOLANDE Administration Protocol Bisacodyl 10 mg 05/13/22 15:22 05/16/22 08:18 Bisacodyl 5 Mg T ablet PO 10 mg DAILY PRN Administration Constipation (see protocol) Protocol Docusate Sodium 100 mg 05/13/22 18:00 05/16/22 17:00 Docusate Sodium 100 Mg Capsule PO 100 mg BID YOLANDE Administration Ethambutol HCl 800 mg 05/14/22 09:00 05/16/22 08:17 Ethambutol 400 M g Tablet PO 800 mg DAILY YOLANDE Administration Ceftriaxone Sodium 2,000 mg/ 50 mls @ 100 mls/ hr 05/14/22 08:00 05/16/22 23:56 Sodium Chloride IV Infused Q12H YOLANDE Infusion Protocol Metronidazole 500 mg in 100 mls @ 100 mls/hr 05/14/22 08:00 05/17/22 03:40 Flagyl Iv IV Infused Q8H YOLANDE Infusion Protocol Pantoprazole Sodiu m 40 mg 05/14/22 09:00 05/16/22 08:[address] 40 Mg Tablet PO 40 mg DAILY YOLANDE Administration Prednisone 10 mg 05/14/22 09:00 05/16/22 08:18 Prednisone 10 Mg Tablet PO 10 mg DAILY YOLANDE Administration Rifampin 600 mg 05/15/22 09:00 05/15/22 08:33 Rifampin 300 Mg Capsule PO 600 mg [id number] YOLANDE Administration Senna 17.2 mg 05/13/22 21:00 05/16/22 20:35 Sennosides 8.6 M g Tablet PO 17.2 mg BEDTIME YOLANDE Administration Sodium Chloride 4 ml 05/15/22 08:00 05/16/22 21:13 Sodium Chloride 3.5% Neb 4 Ml Neb INHALATION 4 ml BID.RESPIRATORY S CH Administration Vitals/I&O/Wt Last Vital Signs Temp 97.6 F 05/17/22 15:18 Pulse 71 05/17/22 15:23 Resp 18 05/17/22 15:23 BP 142/76 05/17/22 15:18 Pulse Ox 96 05/17/22 15:23 O2 Del Method 05/17/22 15:23 O2 Flow Rate 8 05/17/22 11:10 05/17/22 05/17/22 05/17/22 06:59 14:59 22:59 Intake Total 150 / 880 1150 / 1150 Output Total 400 / 675 150 / 150 Balance -250 / 205 1000 / 1000 Physical Exam Const: COMMON NORMALS: patient oriented x3 Resp: COMMON NORMALS: normal respiratory effort, No retractions, No use of accessory muscles and clear to auscultation bilaterally EFFORT & INSPECTION: Yes symmetric chest movement AUSCULTATION: clear to auscultation bilaterally Cardio: COMMON NORMALS: regular rate, regular rhythm, S1 normal heart sound present, S2 normal heart sound present, No gallops present (Cardio), No murmurs present (Cardio), No rub (Cardio) and Peripheral pulses 2+ throughout RATE: regular rate RHYTHM: regular rhythm HEART SOUNDS: S1 normal heart sound present and S2 normal heart sound present PERIPHERAL PULSES: Peripheral pulses 2+ throughout GI: COMMON NORMALS: Normal to inspection, nondistended, normoactive bowel sounds present, Soft to palpation, non-tender, No hepatosplenomegaly present and no masses AUSCULTATION: Yes normoactive bowel sounds PALPATION: Yes Soft to palpation and Yes No hepatosplenomegaly present RECTAL EXAM: Yes deferred Extremity: COMMON NORMALS: no clubbing, cyanosis or edema and no pedal edema Neuro: COMMON NORMALS: patient oriented x3 Data : 05/15/22 03:24 05/15/22 03:24 A&P Assessment and plan (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 (2) Dislocation of ankle, left, open: S/P reduction in ED Qualifiers: Encounter type: initial encounter Qualified Code(s): S93.05XA - Dislocation of left ankle joint, initial encounter; S91.002A - Unspecified open wound, left ankle, initial encounter (3) Open fibular fracture: S/p multiplane external fixator and repair of complex open wound on 05/13 NBW on left lower extremity Pain control Barreto catheter Going to OR in am for ORIF SCDs to right lower extremity Qualifiers: Encounter type: initial encounter Fibula location: shaft Open fracture type: open type III Fracture morphology: comminuted Fracture alignment: displaced Laterality: left Qualified Code(s): S82.452C - Displaced comminuted fracture of shaft of left fibula, initial encounter for open fracture type IIIA, IIIB, or IIIC (4) Pulmonary contusion: Left sided, secondary to bull trauma Qualifiers: Encounter type: initial encounter Laterality: left Qualified Code(s): S27.321A - Contusion of lung, unilateral, initial encounter (5) Multiple rib fractures: Left sided, secondary to bull trauma Qualifiers: Encounter type: initial encounter Fracture type: closed Laterality: left Qualified Code(s): S22.42XA - Multiple fractures of ribs, left side, initial encounter for closed fracture (6) Multiple lacerations: Several to right arm, one to right posterior auricular area/occiput as a result of bull encounter (7) Steroid dependence: On prednisone 10 mg daily for history of rheumatoid arthritis (8) Rheumatoid arthritis: Primarily affecting knees per patient, on chronic steroids Qualifiers: Rheumatoid arthritis location: knee Rheumatoid factor presence: unspecified presence Laterality: bilateral Qualified Code(s): M06.9 - Rheumatoid arthritis, unspecified (9) Bronchiectasis: Not currently exacerbated Qualifiers: Bronchiectasis type: uncomplicated Qualified Code(s): J47.9 - Bronchiectasis, uncomplicated (10) Pulmonary Mycobacterium avium complex (MAC) infection: Follows with Dr Awad at [place], On azithromycin, ethambutol and rifampin since 06/2021 Attestations Medical Necessity Statement*: Patient is to be in hospital for management of fibular fracture. 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 Y92.79 Dislocation of ankle, left, open S93.05XA; S91.002A Encounter type: initial encounter Open fibular fracture S82.452C Encounter type: initial encounter Fibula location: shaft Open fracture type: open type III Fracture morphology: comminuted Fracture alignment: displaced Laterality: left Pulmonary contusion S27.321A Encounter type: initial encounter Laterality: left Multiple rib fractures S22.42XA Encounter type: initial encounter Fracture type: closed Laterality: left Multiple lacerations T07.XXXA Steroid dependence F19.20 Rheumatoid arthritis M06.9 Rheumatoid arthritis location: knee Rheumatoid factor presence: unspecified presence Laterality: bilateral Bronchiectasis J47.9 Bronchiectasis type: uncomplicated Pulmonary Mycobacterium avium complex (MAC) infection A31.0
--- NOTE | 2022-05-17 16:20 | ANE.PACU2 ---
Inpatient post-anesthesia follow up: Airway intact: Yes Vital signs: Temperature 97.6 F Pulse Rate 71 Respiratory Rate 18 Blood Pressure 142/76 Pulse Oximetry 96 Oxygen Delivery Me thod Room Air Oxygen Flow Rate 8 Fraction of Inspir ed Oxygen Hydration adequate: Yes Nausea and vomiting: No Pain level: 2 Mental status: Baseline
[2022-05-17] MEDS: azithromycin 250 mg Tablet PO (17:30)
[2022-05-17] MEDS: docusate sodium 100 mg Capsule PO (17:30)
[2022-05-17] MEDS: sennosides 8.6 mg Tablet 17.2 MG PO (19:39)
[2022-05-17] MEDS: cefTRIAXone 2,000 MG in sodium chloride 0.9% (plus) 50 ML 100 MG IV (19:41)
[2022-05-17] MEDS: sodium chloride 3.5% neb 4 mL Neb INHALATION (20:40)
[2022-05-17] MEDS: acetylcysteine 200 mg/mL SDV 4 mL 100 MG INHALATION (20:40)
--- NOTE | 2022-05-17 22:05 | P.OP_ITS ---
Operative Report Date of procedure: May 17, 2022 Pre-op diagnosis: Preop Diagnosis Open left trimalleolar fracture Open left trimalleolar fracture. Laceration with exposed bone right medial malleolus. Laceration exposed crural fascia left lateral leg. Post-op diagnosis: Same Procedure done: Removal of external fixator, left lower extremity under anesthesia. CPT code 34644 Open reduction internal fixation left trimalleolar fracture. CPT 59841 Implants: 2-0 Vicryl, 3-0 Vicryl, 4-0 nylon, 3-0 nylon, [place] 28 3.5 millimeter screws with washers. [place] 28 anatomic fibular plate with 3.5 mm locking and nonlocking screws. Specimens removed/disposition: None Pathology: None Surgeon: Andrade Scruggs D.P.M. Precision Devices Inspector/Tester: Juliana Estimated blood loss: 50 See intraoperative documentation IV fluids: None Urine output: See intraoperative documentation Complications: None Brief History: Mr. Francis was trampled by a bull and sustained a left open trimalleolar fracture. Date of injury 05/13/2022. Initial management included irrigation and debridement, closed reduction and application of external fixator and wound repair to the left lower extremity. Close monitoring while inpatient, receiving metronidazole and Rocephin. He is ready to proceed for removal of external fixator and open reduction to fixation of the left ankle. I reviewed at length with the patient, the risks, potential complications, benefits, alternatives, expectations, and typical outcomes associated with the surgery. The risks and potential complications were explained in detail, including but not limited to infection, wound dehiscence or soft tissue complications, bleeding and hematoma, chronic edema, neuritis or nerve damage producing numbness or chronic pain, CRPS, failure to relieve pain or worsening pain, thick / painful / unsightly scar, limited motion / stiffness, malposition, delayed union, malunion, or nonunion, fracture, reaction to implants, anesthetic complications, venous thromboembolism, and deformity recurrence. I discussed the notion of no regrets with the patient as it pertains to complications and outcomes. The patient seemed to understand the nature of the proposed care and required convalescence. They asked appropriate questions, answered to their satisfaction. They are aware no guarantees can be made as to a satisfactory outcome and they understand there may be other possible unforeseen complications or outcomes not listed here that will be treated accordingly if they arise. There were no written or implied guarantees given to the patient. They gave informed consent to proceed. Patient has been n.p.o. since midnight. Informed consent signed by patient and myself. I initialed his left lower extremity. He wishes to proceed. Procedure: Under mild sedation the patient was brought to the operating room and placed in supine position. A timeout was performed. Anesthesia was administered by the anesthesia service. Of note popliteal block was performed to the left lower extremity per anesthesia preoperatively, is greatly appreciated. Well-padded pneumatic tourniquet applied to the left high thigh. Attention was then directed to the left lower extremity where delta couplers were loosened by hand and the tibial pin x2 and first metatarsal pin x1 were removed/backed out by hand without incident these were passed to a sharps container. The medial aspect of the transaxial calcaneal pin was scrubbed with chlorhexidine and backed out from medial to lateral by and then passed into a sharps container. All external fixator components were passed from the operative field. The left lower extremity was and scrubbed, prepped and draped utilizing normal aseptic technique. The left lower extremity then elevated and the thigh tourniquet was inflated to 250 mmHg. Attention was directed to the external fixator points of fixation at the tibia x2, medial column and calcaneus of the left lower extremity, these pin sites were flushed with copious nonsterile sensation and closed with 4 nylon. Attention was then directed to the left lateral malleolus where a linear longitudinal incision is made over the distal fibula with #15 blade with dissection carried down through subcutaneous tissue to the layer periosteum utilizing blunt and sharp technique. Care was taken to retract and preserve neurovascular and tendon structures. All bleeders were ligated and cauterized as necessary. A linear Incision was made and comminuted fracture of the left distal fibula was appreciated. This was flushed with copious nonsterile solution, curettaged of hematoma in the fibula then pulled out to length and rotated into anatomic physician. This was in fixated utilizing anatomic fibular plate provided by Ozzy Lozano with 3.5 mm locking and nonlocking screws. Heavy comminution of the fracture site necessitated spanning the fracture and stabilizing the fragments utilizing 0 Vicryl circumferentially about the comminuted site and securing to the plate with the intact. Syndesmosis was tested with cotton hook and noted to have instability, this was then fixated utilizing a [place] react screw proximal and parallel to the ankle mortise with excellent position and reduction of the syndesmosis with internal stabilization noted to be robust when testing intraoperatively. Attention then directed to the medial malleolus that was reduced closed and percutaneously fixated utilizing 3.5 millimeter screws with washers. Soft tissue follow-up intraoperatively is noted to have fragility, the wound at the medial ankle was left undisturbed due to concern for additional surgical trauma causing further injury to soft tissue which would potentially contribute to delayed healing and infection. The incision sites were flushed with copious amounts of sterile sensation. Percutaneous sites at the medial malleolus were flushed and closed with 4-0 nylon. The lateral ankle incision was then closed in a layered fashion with 2-0 Vicryl, 3-0 Vicryl and 3-0 nylon. Intraoperative fluoroscopy confirmed that no hardware violated ankle mortise. Incision sites were dressed with Adaptic, sterile 4 x 4's, Kerlix and multilayer compressive posterior splint with stirrup was applied with ankle neutral position. Tourniquet deflated and a prompt hyperemic response was noted to the distal digits of the left foot. Patient tolerated procedure and anesthesia well and was transferred to the PACU with vital sign stable vascular status intact. Will continue monitoring on the floor, is transferred back to [facility], will continue with Rocephin and metronidazole.
[2022-05-18] VITALS (9 sets, daily range): BP systolic 115–154; BP diastolic 56–74; PULSE 71–103; RESP 16–17; TEMP 36.9–37.5; O2SAT 93–97
[2022-05-18] MEDS: metroNIDAZOLE IV 500 MG/100 ML PREMIX 100 MG IV ×3 (01:03→17:02)
[2022-05-18] MEDS: HYDROcodone-acetaminophen 5-325 mg Tablet 1 TAB PO ×5 (01:03→21:25)
[2022-05-18] MEDS: cefTRIAXone 2,000 MG in sodium chloride 0.9% (plus) 50 ML 100 MG IV ×2 (07:31→20:42)
[2022-05-18] MEDS: sodium chloride 3.5% neb 4 mL Neb INHALATION ×2 (07:41→20:53)
[2022-05-18] MEDS: acetylcysteine 200 mg/mL SDV 4 mL 100 MG INHALATION (07:41)
--- NOTE | 2022-05-18 09:02 | PC.SOCIAL ---
IMM Updated Updated pt on IMM. No questions voiced. Provided pt a copy. Initialed, dated, & timed copy in chart.
[2022-05-18] MEDS: pantoprazole DR 40 mg Tablet PO (09:10)
[2022-05-18] MEDS: predniSONE 10 mg Tablet PO (09:10)
[2022-05-18] MEDS: docusate sodium 100 mg Capsule PO ×2 (09:10→17:03)
[2022-05-18] MEDS: azithromycin 250 mg Tablet PO (09:13)
--- NOTE | 2022-05-18 11:24 | P.PN_ITS ---
Subjective Subjective: Patient continues to have some pain in the left lower extremity: S/p ORIF, left trimalleolar fracture. Medications: Reviewed: Yes Medication Review Details: Generic Name Dose Route Start Last Admin Trade Name Freq PRN Reason Stop Dose Admin Hydrocodone Bitart /Acetaminophen 1 tab 05/13/22 15:22 05/18/22 07:42 Hydrocodone-Acet aminophen 5-325 Mg Tablet PO 1 tab Q4H PRN Administration MODERATE TO SEVER E PAIN Acetylcysteine 100 mg 05/14/22 21:00 05/18/22 07:41 Acetylcysteine 2 00 Mg/Ml Sdv 4 Ml INHALATION 100 mg Q12H YOLANDE Administration Albuterol/Ipratrop ium 3 ml 05/13/22 15:28 05/16/22 08:01 Ipratropium-Albu terol 3 Ml Neb INHALATION 3 ml Q6H PRN Administration SHORTNESS OF SUN TH Azithromycin 250 mg 05/14/22 09:00 05/18/22 09:13 Azithromycin 250 Mg Tablet PO 250 mg DAILY YOLANDE Administration Protocol Bisacodyl 10 mg 05/13/22 15:22 05/16/22 08:18 Bisacodyl 5 Mg T ablet PO 10 mg DAILY PRN Administration Constipation (see protocol) Protocol Docusate Sodium 100 mg 05/13/22 18:00 05/18/22 09:10 Docusate Sodium 100 Mg Capsule PO 100 mg BID YOLANDE Administration Ethambutol HCl 800 mg 05/14/22 09:00 05/18/22 09:20 Ethambutol 400 M g Tablet PO Not Given DAILY YOLANDE Ceftriaxone Sodium 2,000 mg/ 50 mls @ 100 mls/ hr 05/14/22 08:00 05/18/22 09:26 Sodium Chloride IV Infused Q12H YOLANDE Infusion Protocol Metronidazole 500 mg in 100 mls @ 100 mls/hr 05/14/22 08:00 05/18/22 02:11 Flagyl Iv IV Infused Q8H YOLANDE Infusion Protocol Pantoprazole Sodiu m 40 mg 05/14/22 09:00 05/18/22 09:[address] 40 Mg Tablet PO 40 mg DAILY YOLANDE Administration Prednisone 10 mg 05/14/22 09:00 05/18/22 09:10 Prednisone 10 Mg Tablet PO 10 mg DAILY YOLANDE Administration Rifampin 600 mg 05/15/22 09:00 05/15/22 08:33 Rifampin 300 Mg Capsule PO 600 mg [email or web address] YOLANDE Administration Senna 17.2 mg 05/13/22 21:00 05/17/22 19:39 Sennosides 8.6 M g Tablet PO 17.2 mg BEDTIME YOLANDE Administration Sodium Chloride 4 ml 05/15/22 08:00 05/18/22 07:41 Sodium Chloride 3.5% Neb 4 Ml Neb INHALATION 4 ml BID.RESPIRATORY S CH Administration Vitals/I&O/Wt Last Vital Signs Temp 98.5 F 05/18/22 08:00 Pulse 75 05/18/22 08:00 Resp 16 05/18/22 08:00 BP 154/71 05/18/22 08:00 Pulse Ox 94 05/18/22 08:00 O2 Del Method 05/18/22 08:00 O2 Flow Rate 2 05/17/22 20:30 05/17/22 05/18/22 05/18/22 22:59 06:59 14:59 Intake Total 870 / 2020 600 / 2620 50 / 50 Output Total 125 / 275 750 / 1025 490 / 490 Balance 745 / 1745 -150 / 1595 -440 / -440 Physical Exam Const: COMMON NORMALS: patient oriented x3 Resp: COMMON NORMALS: normal respiratory effort, No retractions, No use of accessory muscles and clear to auscultation bilaterally EFFORT & INSPECTION: Yes symmetric chest movement AUSCULTATION: clear to auscultation bilaterally Cardio: COMMON NORMALS: regular rate, regular rhythm, S1 normal heart sound present, S2 normal heart sound present, No gallops present (Cardio), No murmurs present (Cardio), No rub (Cardio) and Peripheral pulses 2+ throughout RATE: regular rate RHYTHM: regular rhythm HEART SOUNDS: S1 normal heart sound present and S2 normal heart sound present PERIPHERAL PULSES: Peripheral pulses 2+ throughout GI: COMMON NORMALS: Normal to inspection, nondistended, normoactive bowel sounds present, Soft to palpation, non-tender, No hepatosplenomegaly present and no masses AUSCULTATION: Yes normoactive bowel sounds PALPATION: Yes Soft to palpation and Yes No hepatosplenomegaly present RECTAL EXAM: Yes deferred Extremity: COMMON NORMALS: no clubbing, cyanosis or edema and no pedal edema Neuro: COMMON NORMALS: patient oriented x3 Data : 05/15/22 03:24 05/15/22 03:24 A&P Assessment and plan (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 (2) Dislocation of ankle, left, open: S/P reduction in ED Qualifiers: Encounter type: initial encounter Qualified Code(s): S93.05XA - Dislocation of left ankle joint, initial encounter; S91.002A - Unspecified open wound, left ankle, initial encounter (3) Open fibular fracture: S/p multiplane external fixator and repair of complex open wound on 05/13: S/P : ORIF, left trimalleolar fracture: 05/18 NBW on left lower extremity Pain control Barreto catheter SCDs to right lower extremity Qualifiers: Encounter type: initial encounter Fibula location: shaft Open fracture type: open type III Fracture morphology: comminuted Fracture alignment: displaced Laterality: left Qualified Code(s): S82.452C - Displaced comminuted fracture of shaft of left fibula, initial encounter for open fracture type IIIA, IIIB, or IIIC (4) Pulmonary contusion: Left sided, secondary to bull trauma Qualifiers: Encounter type: initial encounter Laterality: left Qualified Code(s): S27.321A - Contusion of lung, unilateral, initial encounter (5) Multiple rib fractures: Left sided, secondary to bull trauma Qualifiers: Encounter type: initial encounter Fracture type: closed Laterality: left Qualified Code(s): S22.42XA - Multiple fractures of ribs, left side, initial encounter for closed fracture (6) Multiple lacerations: Several to right arm, one to right posterior auricular area/occiput as a result of bull encounter (7) Steroid dependence: On prednisone 10 mg daily for history of rheumatoid arthritis (8) Rheumatoid arthritis: Primarily affecting knees per patient, on chronic steroids Qualifiers: Rheumatoid arthritis location: knee Rheumatoid factor presence: unspecified presence Laterality: bilateral Qualified Code(s): M06.9 - Rh eumatoid arthritis, unspecified (9) Bronchiectasis: Not currently exacerbated Qualifiers: Bronchiectasis type: uncomplicated Qualified Code(s): J47.9 - Bronchie ctasis, uncomplicated (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.79 Dislocation of ankle, left, open S93.05XA; S91.002A Encounter type: initial encounter Open fibular fracture S82.452C Encounter type: initial encounter Fibula location: shaft Open fracture type: open type III Fracture morphology: comminuted Fracture alignment: displaced Laterality: left Pulmonary contusion S27.321A Encounter type: initial encounter Laterality: left Multiple rib fractures S22.42XA Encounter type: initial encounter Fracture type: closed Laterality: left Multiple lacerations T07.XXXA Steroid dependence F19.20 Rheumatoid arthritis M06.9 Rheumatoid arthritis location: knee Rheumatoid factor presence: unspecified presence Laterality: bilateral Bronchiectasis J47.9 Bronchiectasis type: uncomplicated Pulmonary Mycobacterium avium complex (MAC) infection A31.0
--- NOTE | 2022-05-18 19:27 | PC.NURSE ---
Report taken from Allyson ROUSE. Patient A&O, VSS, no further needs at this time.
[2022-05-18] MEDS: sennosides 8.6 mg Tablet 17.2 MG PO (20:42)
--- NOTE | 2022-05-18 20:48 | PC.NURSE ---
THIS NURSE CAME IN PATIENT'S ROOM TO ROUND, AND PATIENT STATED HOW MANY BOYFRIENDS DO YOU HAVE? THIS NURSE INFORMED PATIENT THAT SHE WAS . WHEN NURSE RETURNED TO ROUND AGAIN, PATIENT STATED, YOU MIGHT WELL JUST BRING ANOTHER BED IN HERE TONIGHT TO STAY WITH ME. NURSE INFORMED PATIENT THAT SHE HAD OTHER PATIENTS TO TAKE CARE OF.
[2022-05-18] MEDS: ipratropium-albuterol 3 mL Neb INHALATION (20:53)
[2022-05-19] MEDS: metroNIDAZOLE IV 500 MG/100 ML PREMIX 100 MG IV ×3 (03:16→17:36)
[2022-05-19] MEDS: HYDROcodone-acetaminophen 5-325 mg Tablet 1 TAB PO ×5 (03:25→23:40)
[2022-05-19 04:00] VITALS: BP 131/65; PULSE 75; RESP 16; TEMP 37.2; O2SAT 94
[2022-05-19 04:55] LABS: Basophils % 0.4 %; Eosinophils # 0.4 10^3/uL (0.0-0.8); Hematocrit 29.3 % (42.0-52.0); Hemoglobin 9.9 g/dL (11.7-16.6); Lymphocytes # 0.7 10^3/uL (0.8-4.8); Lymphocytes % 8.5 %; Mean Corpuscular HGB Conc 33.8 g/dL (30.0-36.0); Mean Corpuscular Hemoglobin 30.8 pg (28.0-34.0); Mean Corpuscular Volume 91.3 fl (80-94); Mean Platelet Volume 9.5 fL (7.4-10.4); Monocytes # 0.7 10^3/uL (0.2-0.9); Monocytes % 8.7 %; Neutrophils # 6.21 10^3/uL (1.8-7.7); Neutrophils % 76.5 %; Nucleated Red Blood Cells % 0 %; Platelet Count 328 10^3/cmm (130-400); Red Blood Count 3.21 10^6/uL (4.1-5.3); Red Cell Distribution Width 12.3 % (12.1-15.1); White Blood Count 8.1 10^3/uL (4.0-10.0)
[2022-05-19 05:19] LABS: Alanine Aminotransferase 28 U/L (0-41); Albumin Level 2.4 g/dL (3.5-5.2); Alkaline Phosphatase 65 U/L (40-130); Aspartate Amino Transferase 46 U/L (0-40); Blood Urea Nitrogen 6 mg/dL (8-23); Calcium 7.6 mg/dL (8.5-10.5); Carbon Dioxide 26 mmol/L (22-29); Chloride 95 mmol/L (98-107); Globulin 2.8 g/dL (1.3-4.6); Glomerular Filtration Rate 164.4 mL/min (90-130); Glucose 93 mg/dL (65-115); Osmolality Calculated 271 mOsm/kg (285-295); Sodium 132 mmol/L (136-145); Total Bilirubin 0.4 mg/dL (0.15-1.2); Total Protein 5.2 g/dL (6.6-8.7)
--- NOTE | 2022-05-19 07:05 | PC.NURSE ---
Report taken from Jessi Neff LPN and Ann Restrepo RN.
[2022-05-19 07:32] VITALS: BP 126/72; PULSE 71; RESP 18; TEMP 36.8; O2SAT 95
[2022-05-19] MEDS: sodium chloride 3.5% neb 4 mL Neb INHALATION (07:36)
[2022-05-19 07:42] VITALS: PULSE 78; RESP 16; O2SAT 98
[2022-05-19] MEDS: cefTRIAXone 2,000 MG in sodium chloride 0.9% (plus) 50 ML 100 MG IV ×2 (07:57→20:32)
[2022-05-19] MEDS: potassium chloride ER 20 mEq Tablet 40 MEQ PO (08:41)
[2022-05-19] MEDS: azithromycin 250 mg Tablet PO (08:43)
[2022-05-19] MEDS: pantoprazole DR 40 mg Tablet PO (08:43)
[2022-05-19] MEDS: predniSONE 10 mg Tablet PO (08:43)
[2022-05-19] MEDS: docusate sodium 100 mg Capsule PO ×2 (08:44→17:35)
[2022-05-19 11:40] VITALS: BP 123/71; PULSE 76; RESP 16; TEMP 36.8; O2SAT 96
--- NOTE | 2022-05-19 13:21 | P.PN_ITS ---
Subjective Subjective: Patient seen bedside this afternoon, he is in good spirits. He is awaiting placement to long term facility. His brother is bedside. Has minimal pain to the left ankle. Patient denies any subjective nausea, vomiting, fever, chills, shortness of breath or chest pain. Vitals/I&O/Wt Last Vital Signs Temp 98.2 F 05/19/22 11:40 Pulse 76 05/19/22 11:40 Resp 16 05/19/22 11:40 BP 123/71 05/19/22 11:40 Pulse Ox 96 05/19/22 11:40 O2 Del Method 05/19/22 11:40 O2 Flow Rate 2 05/17/22 20:30 05/18/22 05/19/22 05/19/22 22:59 06:59 14:59 Intake Total 390 / 780 220 / 1000 510 / 510 Output Total 425 / 915 380 / 380 Balance 390 / 290 -205 / 85 130 / 130 Physical Exam Narrative: GENERAL: Patient is alert and oriented ?3 and in no acute distress. The following is a focused bilateral lower extremity exam. VASCULAR: Dorsalis pedis and posterior tibial arteries palpable +2. Capillary refill time less than 3 seconds to the distal hallux bilaterally. Calf is supple and nontender proximally and distally. No pedal edema appreciated. Pedal hair growth present. NEUROLOGICAL: Epicritic and protopathic sensations grossly intact to the lower e xtremities. DERMATOLOGICAL: Surgical dressing was left intact. There is no strikethrough bleeding at the dressing. No erythema at the toes or leg exposed proximal and distal to the surgical dressing. MUSCULOSKELETAL: No gross deformity at the left ankle. Able to wiggle toes on command. Data : 05/19/22 04:00 05/19/22 04:00 A&P Assessment and plan (1) Open trimalleolar fracture of left ankle: Qualifiers: Encounter type: subsequent encounter Open fracture type: open type III Fracture healing: with routine healing Qualified Code(s): S82.852F - Displaced trimalleolar fracture of left lower leg, subsequent encounter for open fracture type IIIA, IIIB, or IIIC with routine healing (2) Victim of trampling from animal: Plan 71-year-old male with open left trimalleolar fracture. Date of injury 05/13/2022. -Tetanus status updated in the ED 05/13/2022 -Receiving Septra Raxone and metronidazole -Performed reduction and application of external fixator with complex wound repair 05/13/2022 -Performed external fixator removal and open reduction internal fixation left trimalleolar fracture 10 to the 822 * Remain strict nonweightbearing to the left lower extremity * Elevate left foot above the level of the hip * Would like to continue antibiotics once transferred to long term facility, can switch to oral antibiotics for 14 days, will discuss with hospitalist antibiotic selection * From my perspective 81 mg aspirin daily to help potentially reduce risk for deep vein thrombosis until patient is fully weightbearing again. Okay to escalate to Lovenox or other anticoagulant options per hospitalist recommendation. * Okay for transfer to long term, no further surgical intervention anticipated during this hospitalization. * Will follow-up weekly in podiatry clinic with Dr. Scruggs * For now keep posterior splint with stirrup clean, dry and intact, this is not to be changed except by Dr. Scruggs during weekly visits in clinic. Will provide orders to long term facility should this change. 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
--- NOTE | 2022-05-19 14:19 | P.PN_ITS ---
Subjective Subjective: Patient was seen and examined this morning, resting comfortably in bed. Medications: Reviewed: Yes Medication Review Details: Generic Name Dose Route Start Last Admin Trade Name Freq PRN Reason Stop Dose Admin Hydrocodone Bitart /Acetaminophen 1 tab 05/13/22 15:22 05/19/22 12:01 Hydrocodone-Acet aminophen 5-325 Mg Tablet PO 1 tab Q4H PRN Administration MODERATE TO SEVER E PAIN Acetylcysteine 100 mg 05/19/22 09:00 05/19/22 13:10 Mucomyst 200 Mg/ Ml Sdv 30 Ml INHALATION 100 mg Q12H YOLANDE Administration Albuterol/Ipratrop ium 3 ml 05/13/22 15:28 05/18/22 20:53 Ipratropium-Albu terol 3 Ml Neb INHALATION 3 ml Q6H PRN Administration SHORTNESS OF SUN TH Azithromycin 250 mg 05/14/22 09:00 05/19/22 08:43 Azithromycin 250 Mg Tablet PO 250 mg DAILY YOLANDE Administration Protocol Bisacodyl 10 mg 05/13/22 15:22 05/16/22 08:18 Bisacodyl 5 Mg T ablet PO 10 mg DAILY PRN Administration Constipation (see protocol) Protocol Docusate Sodium 100 mg 05/13/22 18:00 05/19/22 08:44 Docusate Sodium 100 Mg Capsule PO 100 mg BID YOLANDE Administration Enoxaparin Sodium 40 mg 05/19/22 11:30 05/19/22 12:04 Enoxaparin 40 Mg /0.4 Ml Syringe SUBCUT Not Given Q24H YOLANDE Ethambutol HCl 800 mg 05/14/22 09:00 05/19/22 08:43 Ethambutol 400 M g Tablet PO Not Given DAILY YOLANDE Ceftriaxone Sodium 2,000 mg/ 50 mls @ 100 mls/ hr 05/14/22 08:00 05/19/22 08:46 Sodium Chloride IV Infused Q12H YOLANDE Infusion Protocol Metronidazole 500 mg in 100 mls @ 100 mls/hr 05/14/22 08:00 05/19/22 12:04 Flagyl Iv IV Infused Q8H YOLANDE Infusion Protocol Pantoprazole Sodiu m 40 mg 05/14/22 09:00 05/19/22 08:[address] 40 Mg Tablet PO 40 mg DAILY YOLANDE Administration Prednisone 10 mg 05/14/22 09:00 05/19/22 08:43 Prednisone 10 Mg Tablet PO 10 mg DAILY YOLANDE Administration Rifampin 600 mg 05/15/22 09:00 05/15/22 08:33 Rifampin 300 Mg Capsule PO 600 mg [id number] YOLANDE Administration Senna 17.2 mg 05/13/22 21:00 05/18/22 20:42 Sennosides 8.6 M g Tablet PO 17.2 mg BEDTIME YOLANDE Administration Sodium Chloride 4 ml 05/15/22 08:00 05/19/22 07:36 Sodium Chloride 3.5% Neb 4 Ml Neb INHALATION 4 ml BID.RESPIRATORY S CH Administration Vitals/I&O/Wt Last Vital Signs Temp 98.2 F 05/19/22 11:40 Pulse 76 05/19/22 11:40 Resp 16 05/19/22 11:40 BP 123/71 05/19/22 11:40 Pulse Ox 96 05/19/22 11:40 O2 Del Method 05/19/22 11:40 O2 Flow Rate 2 05/17/22 20:30 05/18/22 05/19/22 05/19/22 22:59 06:59 14:59 Intake Total 390 / 780 220 / 1000 510 / 510 Output Total 425 / 915 380 / 380 Balance 390 / 290 -205 / 85 130 / 130 Physical Exam Const: COMMON NORMALS: patient oriented x3 Resp: COMMON NORMALS: normal respiratory effort, No retractions, No use of accessory muscles and clear to auscultation bilaterally EFFORT & INSPECTION: Yes symmetric chest movement AUSCULTATION: clear to auscultation bilaterally Cardio: COMMON NORMALS: regular rate, regular rhythm, S1 normal heart sound present, S2 normal heart sound present, No gallops present (Cardio), No murmurs present (Cardio), No rub (Cardio) and Peripheral pulses 2+ throughout RATE: regular rate RHYTHM: regular rhythm HEART SOUNDS: S1 normal heart sound present and S2 normal heart sound present PERIPHERAL PULSES: Peripheral pulses 2+ throughout GI: COMMON NORMALS: Normal to inspection, nondistended, normoactive bowel sounds present, Soft to palpation, non-tender, No hepatosplenomegaly present and no masses AUSCULTATION: Yes normoactive bowel sounds PALPATION: Yes Soft to palpation and Yes No hepatosplenomegaly present RECTAL EXAM: Yes deferred Extremity: COMMON NORMALS: no clubbing, cyanosis or edema and no pedal edema Neuro: COMMON NORMALS: patient oriented x3 Data : 05/19/22 04:00 05/19/22 04:00 A&P Assessment and plan (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 (2) Dislocation of ankle, left, open: S/P reduction in ED Qualifiers: Encounter type: initial encounter Qualified Code(s): S93.05XA - Dislocation of left ankle joint, initial encounter; S91.002A - Unspecified open wound, left ankle, initial encounter (3) Open fibular fracture: S/p multiplane external fixator and repair of complex open wound on 05/13: S/P : ORIF, left trimalleolar fracture: 05/18 NBW on left lower extremity Pain control Barreto catheter SCDs to right lower extremity Qualifiers: Encounter type: initial encounter Fibula location: shaft Open fracture type: open type III Fracture morphology: comminuted Fracture alignment: dis placed Laterality: left Qualified Code(s): S82.452C - Displaced comminuted fracture of shaft of left fibula, initial encounter for open fracture type IIIA, IIIB, or IIIC (4) Pulmonary contusion: Left sided, secondary to bull trauma Qualifiers: Encounter type: initial encounter Laterality: left Qualified Code(s): S27.321A - Contusion of lung, unilateral, initial encounter (5) Multiple rib fractures: Left sided, secondary to bull trauma Qualifiers: Encounter type: initial encounter Fracture type: closed Laterality: left Qualified Code(s): S22.42XA - Multiple fractures of ribs, left side, initial encounter for closed fracture (6) Multiple lacerations: Several to right arm, one to right posterior auricular area/occiput as a result of bull encounter (7) Steroid dependence: On prednisone 10 mg daily for history of rheumatoid arthritis (8) Rheumatoid arthritis: Primarily affecting knees per patient, on chronic steroids Qualifiers: Rheumatoid arthritis location: knee Rheumatoid factor presence: unspecified presence Laterality: bilateral Qualified Code(s): M06.9 - Rheumatoid arthritis, unspecified (9) Bronchiectasis: Not currently exacerbated Qualifiers: Bronchiectasis type: uncomplicated Qualified Code(s): J47.9 - Bronchiectasis, uncomplicated (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 was brought in after being trampled by a bull [place] his [place].Currently he is being managed for. Assessment : Lt fibular fracture left trimalleolar fracture Pulmonary Contusion Multiple Lt sided rib fracture H/o R.A H/o MAC PLan : S/p multiplane external fixator and repair of complex open wound on 05/13: S/P : ORIF, left trimalleolar fracture: 05/18 NBW on left lower extremity Pain control Barreto catheter For pulmonary contusion pulmonary was board, was on conservative respiratory care Has been Empirically on cef and Metronidazole Continue AER for MAC Chronically on prednisone 10 mg po daily for his h/o R/A SCDs to right lower extremity Code status : Full code DVT PPX: On Lovenox as well as SCDS. Disposition :Patient is awaiting placement. Like [facility] dove. Attestations Medical Necessity Statement*: Awaiting Placement. 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 Dislocation of ankle, left, open S93.05XA; S91.002A Encounter type: initial encounter Open fibular fracture S82.452C Encounter type: initial encounter Fibula location: shaft Open fracture type: open type III Fracture morphology: comminuted Fracture alignment: displaced Laterality: left Pulmonary contusion S27.321A Encounter type: initial encounter Laterality: left Multiple rib fractures S22.42XA Encounter type: initial encounter Fracture type: closed Laterality: left Multiple lacerations T07.XXXA Steroid dependence F19.20 Rheumatoid arthritis M06.9 Rheumatoid arthritis location: knee Rheumatoid factor presence: unspecified presence Laterality: bilateral Bronchiectasis J47.9 Bronchiectasis type: uncomplicated Pulmonary Mycobacterium avium complex (MAC) infection A31.0
--- NOTE | 2022-05-19 14:54 | PC.PT ---
Patient declined attempted PT evaluation at 1435 today, stated may be tomorrow.
[2022-05-19 15:33] VITALS: BP 121/71; PULSE 81; RESP 16; TEMP 36.7; O2SAT 97
[2022-05-19 20:00] VITALS: BP 133/68; PULSE 79; RESP 17; TEMP 37.1; O2SAT 95
[2022-05-19] MEDS: sennosides 8.6 mg Tablet 17.2 MG PO (20:33)
[2022-05-20] VITALS (7 sets, daily range): BP systolic 109–135; BP diastolic 61–72; PULSE 69–87; RESP 15–18; TEMP 36.7–37.7; O2SAT 95–98
[2022-05-20] MEDS: metroNIDAZOLE IV 500 MG/100 ML PREMIX 100 MG IV ×3 (02:17→17:48)
[2022-05-20] MEDS: HYDROcodone-acetaminophen 5-325 mg Tablet 1 TAB PO ×4 (05:29→21:00)
--- NOTE | 2022-05-20 08:34 | PC.SOCIAL ---
IMM Updated Updated pt on IMM. No questions voiced. Provided pt a copy. Initialed, dated, & timed copy in chart.
[2022-05-20] MEDS: rifAMPin 300 mg Capsule 600 MG PO (09:49)
[2022-05-20] MEDS: cefTRIAXone 2,000 MG in sodium chloride 0.9% (plus) 50 ML 100 MG IV (09:49)
[2022-05-20] MEDS: docusate sodium 100 mg Capsule PO ×2 (09:50→17:50)
[2022-05-20] MEDS: predniSONE 10 mg Tablet PO (09:52)
[2022-05-20] MEDS: azithromycin 250 mg Tablet PO (09:52)
[2022-05-20] MEDS: pantoprazole DR 40 mg Tablet PO (09:52)
--- NOTE | 2022-05-20 10:05 | P.PN_ITS ---
Subjective Subjective: Patient was seen this morning, he tells me that his dressings were changed by Dr. Scruggs, overall he is feeling well Vitals/I&O/Wt Last Vital Signs Temp 98.1 F 05/20/22 07:48 Pulse 70 05/20/22 07:59 Resp 16 05/20/22 07:59 BP 135/67 05/20/22 07:48 Pulse Ox 95 05/20/22 07:59 O2 Del Method 05/20/22 07:59 O2 Flow Rate 2 05/17/22 20:30 05/19/22 05/20/22 05/20/22 22:59 06:59 14:59 Intake Total 270 / 780 Output Total 250 / 630 950 / 1580 Balance 20 / 150 -950 / -800 Physical Exam Const: COMMON NORMALS: no acute distress and patient oriented x3 Resp: COMMON NORMALS: normal respiratory effort, No retractions, No use of accessory muscles and clear to auscultation bilaterally AUSCULTATION: clear to auscultation bilaterally Cardio: COMMON NORMALS: regular rate, regular rhythm, S1 normal heart sound present and S2 normal heart sound present RATE: regular rate RHYTHM: regular rhythm HEART SOUNDS: S1 normal heart sound present and S2 normal heart sound present GI: COMMON NORMALS: Normal to inspection, nondistended, normoactive bowel sounds present, non-tender and no masses Extremity: COMMON NORMALS: no pedal edema NARRATIVE EXTREMITY EXAM: Left lower extremity wrapped Neuro: COMMON NORMALS: patient oriented x3 Psych: COMMON NORMALS: mental status grossly normal Data : 05/19/22 04:00 05/19/22 04:00 A&P Assessment and plan (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 (2) Dislocation of ankle, left, open: S/P reduction in ED Qualifiers: Encounter type: initial encounter Qualified Code(s): S93.05XA - Dislocation of left ankle joint, initial encounter; S91.002A - Unspecified open wound, left ankle, initial encounter (3) Open fibular fracture: S/p multiplane external fixator and repair of complex open wound on 05/13: S/P : ORIF, left trimalleolar fracture: 05/18 NBW on left lower extremity Pain control DEYSI Villanueva SCDs to right lower extremity Qualifiers: Encounter type: initial encounter Fibula location: shaft Open fracture type: open type III Fracture morphology: comminuted Fracture alignment: displaced Laterality: left Qualified Code(s): S82.452C - Displaced comminuted fracture of shaft of left fibula, initial encounter for open fracture type IIIA, IIIB, or IIIC (4) Pulmonary contusion: Left sided, secondary to bull trauma Qualifiers: Encounter type: initial encounter Laterality: left Qualified Code(s): S27.321A - Contusion of lung, unilateral, initial encounter (5) Multiple rib fractures: Left sided, secondary to bull trauma Qualifiers: Encounter type: initial encounter Fracture type: closed Laterality: left Qualified Code(s): S22.42XA - Multiple fractures of ribs, left side, initial encounter for closed fracture (6) Multiple lacerations: Several to right arm, one to right posterior auricular area/occiput as a result of bull encounter (7) Steroid dependence: On prednisone 10 mg daily for history of rheumatoid arthritis (8) Rheumatoid arthritis: Primarily affecting knees per patient, on chronic steroids Qualifiers: Rheumatoid arthritis location: knee Rheumatoid factor presence: unspecified presence Laterality: bilateral Qualified Code(s): M06.9 - Rheumatoid arthritis, unspecified (9) Bronchiectasis: Not currently exacerbated Qualifiers: Bronchiectasis type: uncomplicated Qualified Code(s): J47.9 - Bronchiectasis, uncomplicated (10) Pulmonary Mycobacterium avium complex (MAC) infection: Follows with Dr Awad at [facility], On azithromycin, ethambutol and rifampin since 06/2021 Plan 71 y o male with PMH of R/A , MAC, bronchiectasis.On combination of azithromycin, ethambutol, and rifampin since June of last year.? was brought in after being trampled by [place] bull [place] his [place].Currently he is being managed for. Assessment : Lt fibular fracture left trimalleolar fracture Pulmonary Contusion Multiple Lt sided rib fracture H/o R.A H/o MAC PLan : S/p multiplane external fixator and repair of complex open wound on 05/13: S/P : ORIF, left trimalleolar fracture: 05/18 NBW on left lower extremity Pain control Barre[place] catheter For pulmonary contusion pulmonary was board, was on conservative respiratory care Stop Rocephin Continue AER for MAC Chronically on prednisone 10 mg po daily for his h/o R/A SCDs to right lower extremity Code status : Full code DVT PPX: On Lovenox as well as SCDS. Disposition :Patient is awaiting placement. Like [facility] dove. 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 Y92.79 Dislocation of ankle, left, open S93.05XA; S91.002A Encounter type: initial encounter Open fibular fracture S82.452C Encounter type: initial encounter Fibula location: shaft Open fracture type: open type III Fracture morphology: comminuted Fracture alignment: displaced Laterality: left Pulmonary contusion S27.321A Encounter type: initial encounter Laterality: left Multiple rib fractures S22.42XA Encounter type: initial encounter Fracture type: closed Laterality: left Multiple lacerations T07.XXXA Steroid dependence F19.20 Rheumatoid arthritis M06.9 Rheumatoid arthritis location: knee Rheumatoid factor presence: unspecified presence Laterality: bilateral Bronchiectasis J47.9 Bronchiectasis type: uncomplicated Pulmonary Mycobacterium avium complex (MAC) infection A31.0
--- NOTE | 2022-05-20 19:00 | PM.PN ---
Subjective Subjective: Patient seen bedside this afternoon, he is in good spirits. He is awaiting placement to retirement facility. Has minimal pain to the left ankle. Patient denies any subjective nausea, vomiting, fever, chills, shortness of breath or chest pain. Vitals/I&O/Wt Last Vital Signs Temp 98.1 F 05/20/22 16:00 Pulse 83 05/20/22 16:00 Resp 18 05/20/22 16:00 BP 125/72 05/20/22 16:00 Pulse Ox 97 05/20/22 16:00 O2 Del Method 05/20/22 16:00 O2 Flow Rate 2 05/17/22 20:30 05/20/22 05/20/22 05/20/22 06:59 14:59 22:59 Intake Total 100 / 880 580 / 580 Output Total 950 / 1580 Balance -850 / -700 580 / 580 Physical Exam Narrative: GENERAL: Patient is alert and oriented ?3 and in no acute distress. The following is a focused bilateral lower extremity exam. VASCULAR: Dorsalis pedis and posterior tibial arteries palpable +2. Capillary refill time less than 3 seconds to the distal hallux bilaterally. Calf is supple and nontender proximally and distally. No pedal edema appreciated. Pedal hair growth present. NEUROLOGICAL: Epicritic and protopathic sensations grossly intact to the lower extremities. +2 Achilles tendon reflex noted bilaterally. Negative Tinel sign upon percussion of lower extremity nerves. DERMATOLOGICAL: Sutures are intact to the left medial ankle and left lateral leg. No periwound erythema, warmth or drainage. No necrosis of soft tissue margins. [place] healthy skin at skin to pin interface in the tibia, calcaneus and first metatarsal. No fracture blisters. MUSCULOSKELETAL: No gross deformity at the left ankle. Maintained alignment with external fixator intact. Data : 05/19/22 04:00 05/19/22 04:00 A&P Assessment and plan (1) Open trimalleolar fracture of left ankle: Qualifiers: Encounter type: subsequent encounter Open fracture type: open type III Fracture healing: with routine healing Qualified Code(s): S82.852F - Displaced trimalleolar fracture of left lower leg, subsequent encounter for open fracture type IIIA, IIIB, or IIIC with routine healing (2) Victim of trampling from animal: Plan 71-year-old male with open left trimalleolar fracture. Date of injury 05/13/2022. -Tetanus status updated in the ED 05/13/2022 -Receiving Septra Raxone and metronidazole -Performed reduction and application of external fixator with complex wound repair 05/13/2022 -Performed external fixator removal and open reduction internal fixation left trimalleolar fracture 10 to the 822 -Stable postoperative changes at the left lower extremity appreciated during dressing change at today's visit. No erythema, no purulence no clinical signs of infection. Remain strict nonweightbearing to the left lower extremity Elevate left foot above the level of the hip Would like to continue antibiotics once transferred to retirement facility, can switch to oral antibiotics for 14 days, will discuss with hospitalist antibiotic selection From my perspective 81 mg aspirin daily to help potentially reduce risk for deep vein thrombosis until patient is fully weightbearing again. Okay to escalate to Lovenox or other anticoagulant options per hospitalist recommendation. Okay for transfer to retirement, no further surgical intervention anticipated during this hospitalization. Will follow-up weekly in podiatry clinic with Dr. Scruggs For now keep posterior splint with stirrup clean, dry and intact, this is not to be changed except by Dr. Scruggs during weekly visits in clinic. Will provide orders to retirement facility should this change. 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
[2022-05-20] MEDS: sennosides 8.6 mg Tablet 17.2 MG PO (21:01)
[2022-05-21] VITALS (7 sets, daily range): BP systolic 110–131; BP diastolic 56–72; PULSE 64–90; RESP 14–20; TEMP 36.7–37.5; O2SAT 94–97
[2022-05-21] MEDS: metroNIDAZOLE IV 500 MG/100 ML PREMIX 100 MG IV ×2 (01:07→10:50)
[2022-05-21] MEDS: HYDROcodone-acetaminophen 5-325 mg Tablet 1 TAB PO ×3 (01:58→20:44)
[2022-05-21] MEDS: azithromycin 250 mg Tablet PO (08:14)
[2022-05-21] MEDS: docusate sodium 100 mg Capsule PO ×2 (08:15→17:52)
[2022-05-21] MEDS: predniSONE 10 mg Tablet PO (08:15)
[2022-05-21] MEDS: pantoprazole DR 40 mg Tablet PO (08:15)
--- NOTE | 2022-05-21 11:41 | PM.PN ---
Subjective Subjective: Patient was seen this morning, he participated with physical therapy yesterday, he is agreeable to and motivated to participate with physical therapy today, no pain complaints Vitals/I&O/Wt Last Vital Signs Temp 98.1 F 05/21/22 11:12 Pulse 80 05/21/22 11:12 Resp 18 05/21/22 11:12 BP 120/68 05/21/22 11:12 Pulse Ox 94 05/21/22 11:12 O2 Del Method 05/21/22 11:12 O2 Flow Rate 2 05/20/22 19:25 05/20/22 05/21/22 05/21/22 22:59 06:59 14:59 Intake Total 510 / 1090 100 / 1190 Output Total 250 / 250 400 / 650 Balance 260 / 840 -300 / 540 Physical Exam Const: COMMON NORMALS: no acute distress and patient oriented x3 Resp: COMMON NORMALS: normal respiratory effort, No retractions, No use of accessory muscles and clear to auscultation bilaterally AUSCULTATION: clear to auscultation bilaterally Cardio: COMMON NORMALS: regular rate, regular rhythm, S1 normal heart sound present and S2 normal heart sound present RATE: regular rate RHYTHM: regular rhythm HEART SOUNDS: S1 normal heart sound present and S2 normal heart sound present GI: COMMON NORMALS: Normal to inspection, nondistended, normoactive bowel sounds present and non-tender Extremity: COMMON NORMALS: no pedal edema Neuro: COMMON NORMALS: patient oriented x3 Psych: COMMON NORMALS: mental status grossly normal Data : 05/19/22 04:00 05/19/22 04:00 A&P Assessment and plan (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 (2) Dislocation of ankle, left, open: S/P reduction in ED Qualifiers: Encounter type: initial encounter Qualified Code(s): S93.05XA - Dislocation of left ankle joint, initial encounter; S91.002A - Unspecified open wound, left ankle, initial encounter (3) Open fibular fracture: S/p multiplane external fixator and repair of complex open wound on 05/13: S/P : ORIF, left trimalleolar fracture: 05/18 NBW on left lower extremity Pain control SCDs to right lower extremity, Lovenox for DVT prophylaxis Qualifiers: Encounter type: initial encounter Fibula location: shaft Open fracture type: open type III Fracture morphology: comminuted Fracture alignment: displaced Laterality: left Qualified Code(s): S82.452C - Displaced comminuted fracture of shaft of left fibula, initial encounter for open fracture type IIIA, IIIB, or IIIC (4) Pulmonary contusion: Left sided, secondary to bull trauma Qualifiers: Encounter type: initial encounter Laterality: left Qualified Code(s): S27.321A - Contusion of lung, unilateral, initial encounter (5) Multiple rib fractures: Left sided, secondary to bull trauma Qualifiers: Encounter type: initial encounter Fracture type: closed Laterality: left Qualified Code(s): S22.42XA - Multiple fractures of ribs, left side, initial encounter for closed fracture (6) Multiple lacerations: Several to right arm, one to right posterior auricular area/occiput as a result of bull encounter (7) Steroid dependence: On prednisone 10 mg daily for history of rheumatoid arthritis (8) Rheumatoid arthritis: Primarily affecting knees per patient, on chronic steroids Qualifiers: Rheumatoid arthritis location: knee Rheumatoid factor presence: unspecified presence Laterality: bilateral Qualified Code(s): M06.9 - Rheumatoid arthritis, unspecified (9) Bronchiectasis: Not currently exacerbated Qualifiers: Bronchiectasis type: uncomplicated Qualified Code(s): J47.9 - Bronchiectasis, uncomplicated (10) Pulmonary Mycobacterium avium complex (MAC) infection: Follows with Dr Awad at [facility], On azithromycin, ethambutol and rifampin since 06/2021 Plan 71 y o male with PMH of R/A , MAC, bronchiectasis.On combination of azithromycin, ethambutol, and rifampin since June of last year.? was brought in after being trampled by a bull [place] his [place].Currently he is being managed for. Assessment : Lt fibular fracture left trimalleolar fracture Pulmonary Contusion Multiple Lt sided rib fracture H/o R.A H/o MAC PLan : S/p multiplane external fixator and repair of complex open wound on 05/13: S/P : ORIF, left trimalleolar fracture: 05/18 NBW on left lower extremity Pain control For pulmonary contusion pulmonary was board, was on conservative respiratory care Continue AER for MAC Chronically on prednisone 10 mg po daily for his h/o R/A SCDs to right lower extremity Code status : Full code DVT PPX: On Lovenox as well as SCDS. Disposition :Patient is awaiting placement. Like [facility] tommorow. 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.79 Dislocation of ankle, left, open S93.05XA; S91.002A Encounter type: initial encounter Open fibular fracture S82.452C Encounter type: initial encounter Fibula location: shaft Open fracture type: open type III Fracture morphology: comminuted Fracture alignment: displaced Laterality: left Pulmonary contusion S27.321A Encounter type: initial encounter Laterality: left Multiple rib fractures S22.42XA Encounter type: initial encounter Fracture type: closed Laterality: left Multiple lacerations T07.XXXA Steroid dependence F19.20 Rheumatoid arthritis M06.9 Rheumatoid arthritis location: knee Rheumatoid factor presence: unspecified presence Laterality: bilateral Bronchiectasis J47.9 Bronchiectasis type: uncomplicated Pulmonary Mycobacterium avium complex (MAC) infection A31.0
--- NOTE | 2022-05-21 19:48 | PC.NURSE ---
Sacral region and buttocks appear to be red and still darnell. Cream applied
[2022-05-21] MEDS: sennosides 8.6 mg Tablet 17.2 MG PO (20:45)
[2022-05-22] VITALS: BP 107/63; PULSE 81; RESP 15; TEMP 37.6; O2SAT 96
[2022-05-22 04:00] VITALS: BP 110/67; PULSE 79; RESP 13; TEMP 37.2; O2SAT 97
[2022-05-22] MEDS: HYDROcodone-acetaminophen 5-325 mg Tablet 1 TAB PO ×2 (05:48→12:57)
[2022-05-22 08:00] VITALS: BP 129/71; PULSE 74; RESP 18; TEMP 36.8; O2SAT 94; O2SAT 96
[2022-05-22] MEDS: docusate sodium 100 mg Capsule PO (09:15)
[2022-05-22] MEDS: pantoprazole DR 40 mg Tablet PO (09:15)
[2022-05-22] MEDS: azithromycin 250 mg Tablet PO (09:15)
[2022-05-22] MEDS: rifAMPin 300 mg Capsule 600 MG PO (09:15)
[2022-05-22] MEDS: predniSONE 10 mg Tablet PO (09:15)
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
--- NOTE | 2022-05-22 10:24 | PC.SOCIAL ---
IMM Updated Updated pt in IMM. No questions voiced. Provided pt a copy. Initialed, dated, & timed copy in chart.
[2022-05-22 11:28] LABS: SARS Covid-2 Antigen negative (Negative)
[2022-05-22 11:54] VITALS: BP 118/69; PULSE 80; RESP 18; TEMP 36.8; O2SAT 96
--- NOTE | 2022-05-22 13:29 | PC.NURSE ---
Report given to [facility] nurse who denies further questions or concerns.
[2022-05-22 15:06] VITALS: BP 118/69; PULSE 80; RESP 18; TEMP 36.8; O2SAT 96
--- NOTE | 2022-05-22 15:06 | PC.NURSE ---
Belongings gathered and provided to EMS personnel to discharge to swing bed facility.
== END 2022-05-22 15:15 | DRG 493 ==
LOC: ER 15:10 → OR 15:15 → MEDSURG 18:03
PROVIDERS: Internal Medicine; Podiatrist Foot & Ankle Surgery; Admitting Provider Hospitalist; Emergency Provider Family Medicine; PCP Family Medicine; Visit Provider Family Medicine
PROC: 0QSM05Z Reposition Left Tarsal with External Fixation Device, Open Approach (ICD-10-PCS; principal; 2022-05-13 15:30)
PROC: 0QSK04Z Reposition Left Fibula with Internal Fixation Device, Open Approach (ICD-10-PCS; principal; 2022-05-17 08:20)
PROC: 0QSK04Z Reposition Left Fibula with Internal Fixation Device, Open Approach (ICD-10-PCS; 2022-05-17 08:20)
DX: S82.852C Displaced trimalleolar fracture of left lower leg, initial encounter for open fracture type IIIA, IIIB, or IIIC (principal); A31.0 Pulmonary mycobacterial infection; S22.43XA Multiple fractures of ribs, bilateral, initial encounter for closed fracture; S27.321A Contusion of lung, unilateral, initial encounter; W55.29XA Other contact with cow, initial encounter; Y92.79 Other farm location as the place of occurrence of the external cause; M47.812 Spondylosis without myelopathy or radiculopathy, cervical region; J47.9 Bronchiectasis, uncomplicated; Z79.2 Long term (current) use of antibiotics; M06.9 Rheumatoid arthritis, unspecified; Z79.52 Long term (current) use of systemic steroids; Z87.891 Personal history of nicotine dependence; R73.9 Hyperglycemia, unspecified; E83.42 Hypomagnesemia
CPT/HCPCS: 36415; 70450; 71260; 72125; 73590; 73600; 73610; 74177; 76000; 80048; 80053; 80069; 81003; 82550; 83735; 85025; 85610; 85730; 87426; 90471; 90715; 93005; 94640; 96365; 96375; 97110; 97116; 97161; 97167; 97530; 99285; C1713; J0690; J0696; J1170; J1650; J2370; J2405; J2704; J2795; J3010; J3475; J3490; J7030; J7512; J7608; Q0144; Q9967

== ENCOUNTER → 2022-06-06 15:32 | Outpatient (BNVA) | payer MEDICARE, MEDICAID, SELFPAY | PROVIDERS: PCP Family Medicine; Visit Provider Podiatrist Foot & Ankle Surgery | DX: S82.852 Displaced trimalleolar fracture of left lower leg (principal); W55.89XD Other contact with other mammals, subsequent encounter | CPT/HCPCS: 73610; 99024 ==

== ENCOUNTER → 2022-06-27 16:05 | Outpatient (BNVA) | payer MEDICARE, MEDICAID, SELFPAY | PROVIDERS: PCP Family Medicine; Visit Provider Podiatrist Foot & Ankle Surgery | DX: Z98.890 Other specified postprocedural states (principal); S82.852 Displaced trimalleolar fracture of left lower leg; W55.89XD Other contact with other mammals, subsequent encounter | CPT/HCPCS: 73610; 99024 ==

== ENCOUNTER → 2022-07-11 09:41 | Outpatient (BNVA) | payer MEDICARE, MEDICAID, SELFPAY | PROVIDERS: PCP Family Medicine; Visit Provider Podiatrist Foot & Ankle Surgery | DX: S82.852 Displaced trimalleolar fracture of left lower leg (principal); W55.89XD Other contact with other mammals, subsequent encounter; Z98.890 Other specified postprocedural states | CPT/HCPCS: 73610 ==

== ENCOUNTER 2022-07-11 10:33 | Outpatient (CLI) | payer MEDICARE, MEDICAID, SELFPAY | END 2022-07-11 10:34 | disposition home or self-care (01) | LOC: SPT 10:33 | PROVIDERS: PCP Family Medicine; Visit Provider Podiatrist Foot & Ankle Surgery | DX: Z46.89 Encounter for fitting and adjustment of other specified devices (principal); S82.402E Unspecified fracture of shaft of left fibula, subsequent encounter for open fracture type I or II with routine healing; S93.05XD Dislocation of left ankle joint, subsequent encounter; S91.002D Unspecified open wound, left ankle, subsequent encounter; X58.XXXD Exposure to other specified factors, subsequent encounter | CPT/HCPCS: 99024; L4361 ==

== ENCOUNTER → 2022-07-17 14:04 | Outpatient (BNVA) | payer MEDICARE, MEDICAID, SELFPAY | PROVIDERS: PCP Family Medicine; Visit Provider Podiatrist Foot & Ankle Surgery | DX: Z98.890 Other specified postprocedural states; S82.852 Displaced trimalleolar fracture of left lower leg; W55.89XD Other contact with other mammals, subsequent encounter | CPT/HCPCS: 73610; 99024 ==

== ENCOUNTER → 2022-08-01 13:08 | Outpatient (BNVA) | payer MEDICARE, SELFPAY | PROVIDERS: PCP Family Medicine; Visit Provider Podiatrist Foot & Ankle Surgery | DX: Z98.890 Other specified postprocedural states (principal); S82.852 Displaced trimalleolar fracture of left lower leg; W55.89XD Other contact with other mammals, subsequent encounter | CPT/HCPCS: 73610; 99024 ==

== ENCOUNTER → 2022-08-22 12:46 | Outpatient (BNVA) | payer MEDICARE, MEDICAID, SELFPAY | PROVIDERS: PCP Family Medicine; Visit Provider Podiatrist Foot & Ankle Surgery | DX: Z98.890 Other specified postprocedural states (principal); L97.322 Non-pressure chronic ulcer of left ankle with fat layer exposed; S82.852 Displaced trimalleolar fracture of left lower leg; W55.89XD Other contact with other mammals, subsequent encounter | CPT/HCPCS: 73610; 99213 ==

== ENCOUNTER → 2022-09-12 13:29 | Outpatient (BNVA) | payer MEDICARE, MEDICAID, SELFPAY | PROVIDERS: PCP Family Medicine; Visit Provider Podiatrist Foot & Ankle Surgery | DX: S82.852 Displaced trimalleolar fracture of left lower leg (principal); W55.89XD Other contact with other mammals, subsequent encounter; L97.322 Non-pressure chronic ulcer of left ankle with fat layer exposed; Z98.890 Other specified postprocedural states | CPT/HCPCS: 73610; 99024 ==

== ENCOUNTER → 2022-09-27 15:03 | Outpatient (BNVA) | payer MEDICARE, MEDICAID, SELFPAY | PROVIDERS: PCP Family Medicine; Visit Provider Podiatrist Foot & Ankle Surgery | DX: Z98.890 Other specified postprocedural states (principal); L97.322 Non-pressure chronic ulcer of left ankle with fat layer exposed; S82.852 Displaced trimalleolar fracture of left lower leg; W55.89XD Other contact with other mammals, subsequent encounter | CPT/HCPCS: 73610; 99214 ==

== ENCOUNTER 2022-10-02 10:08 | Day surgery (SDC) | payer MEDICARE, MEDICAID, SELFPAY ==
[2022-10-01 13:17] VITALS: BMI 20.9
[2022-10-02] VITALS (8 sets, daily range): BP systolic 101–156; BP diastolic 55–91; PULSE 65–74; RESP 14–18; TEMP 36.2–36.3; O2SAT 95–99
[2022-10-02] MEDS: sodium chloride 0.9% 1,000 ML 30 ML IV (10:42)
--- NOTE | 2022-10-02 11:54 | W.PM.OPSUD ---
Surgery/Procedure H&P Update DATE OF PROCEDURE: October 02, 2022 DATE H&P PERFORMED: 09/27/22 CHANGES TO PREVIOUS DOCUMENTATION: none PREOP DIAGNOSIS: Painful hardware left ankle. Left foot wound with exposed tendon. PLANNED PROCEDURE: Operation Date: 10/02/22 12:00 Proposed Procedures p Deep hardware removal, wound bed preparation and application of biologic graft left lower extremity 01176, 42100, 94215,?T84.84 XA,L97.422,(Left) - Andrade Scruggs DPM s Wound Bed Preparation(Left) - Andrade Scruggs DPM s application of biologic graft left lower extremity(Left) - Andrade Scruggs DPM
--- NOTE | 2022-10-02 12:15 | P.OP_ITS ---
Operative Report Date of procedure: October 02, 2022 Pre-op diagnosis: Preop Diagnosis Painful hardware left ankle. Left foot wound with exposed tendon. Post-op diagnosis: Same Procedure done: Left ankle deep hardware removal. CPT code 76854 Wound bed preparation and application of biologic graft left lower extremity. CPT codes 55997, 25973 Implants: 2-0 Vicryl, 3-0 Vicryl, skin jordon Human amniotic membrane allograft 5 cm x 5 cm expiration date 2024-03-06 Lot number [id number] Specimens removed/disposition: None Pathology: None Surgeon: Andrade Scruggs D.P.M. Numberer And Wirer: Gretel Estimated blood loss: 5 See intraoperative documentation IV fluids: 0 Urine output: 0 Complications: None Brief History: Patient examined and evaluated, findings and treatment options were discussed with patient at length.? Discussed need for partial hardware removal, and would like to retain the majority of the plate and the syndesmotic screw, attentively made to trim the plate down and remove the anatomic portion that is communicating to the wound.? We will also attempt biologic graft application intraoperatively if indicated to the 2 left foot wounds.? Patient is agreeable and wished to proceed.? I reviewed at length with the patient, the risks, potential complications, benefits, alternatives, expectations, and typical outcomes associated with the surgery. The risks and potential complications were explained in detail, including but not limited to infection, wound dehiscence or soft tissue complications, bleeding and hematoma, chronic edema, neuritis or nerve damage producing numbness or chronic pain, CRPS, failure to relieve pain or worsening pain, thick / painful / unsightly scar, limited motion / stiffness, malposition, delayed union, malunion, or nonunion, fracture, reaction to implants, anesthetic complications, venous thromboembolism, and deformity recurrence.? I discussed the notion of no regrets with the patient as it pertains to complications and outcomes. The patient seemed to understand the nature of the proposed care and required convalescence. They asked appropriate questions, answered to their satisfaction. They are aware no guarantees can be made as to a satisfactory outcome and they understand there may be other possible unforeseen complications or outcomes not listed here that will be treated accordingly if they arise. There were no written or implied guarantees given to the patient. They gave informed consent to proceed. Procedure: Under mild sedation the patient was brought to the operating room and remained on the gurney in supine position. A timeout was performed. Anesthesia was then administered by the anesthesia service. Local anesthesia was injected by myself consisting of one-to-one mixture 1% lidocaine 0.5% Marcaine plain total of 30cc infiltrated in a V-block fashion proximal to the left lateral malleolus as well as at the dorsum of the left foot and lateral left foot. A well-padded pneumatic tourniquet was applied to the left high calf. The left lower extremity was scrubbed, prepped and draped utilizing normal aseptic technique. The left foot and ankle were exanguinated with an Esmarch bandage and the tourniquet was inflated to 250 mmHg. Attention was directed to the lateral aspect of the left ankle where prominent hardware was appreciated at the lateral malleolus and a small sinus tract pinhole size less than 2 mm was appreciated and communicating to hardware, there is no purulent drainage and no erythema or warmth. Directly over the previous cicatrix a linear longitudinal incision was made through skin with a #15 blade with dissection carried down through subcutaneous tissue to the layer of hardware. Total 5 screws were removed at the distal anatomic cluster of the [place] plate. The plate was then trimmed with pin cutters through a screw hole just inferior to the syndesmotic screw. The plate was then passed from the operative field. No intraoperative findings consistent with infectious process or inflammatory process. The incision was irrigated with copious amounts of sterile skin solution. Decision was made to leave the syndesmotic screw and proximal plate and screws intact as they were not proud or problematic, they were not causing pain with the patient preoperatively, no soft tissue irritation associate with this portion of the hardware. The incision was further irrigated with saline solution and closed in a layered fashion. It was closed with 2-0 Vicryl, 3-0 Vicryl and skin jordon. Attention was then directed to the left dorsal foot where a wound was appreciated near the base of the second metatarsal with epithelialized margin and fibrous base exposed to tendon. Wound was debrided sharply with pickups and a 15 blade, postdebridement wound measurements 1.8 cm x 1 cm x 0.3 cm. The wound was debrided excisionally sharply in nature of devitalized epidermis, dermis, subcutaneous tissue and tendon. Human amniotic membrane allograft was then sized and placed directly into the wound bed and covered with Adaptic, see expiration and lot number above. Wound to the left foot adjacent to the fifth metatarsal base was appreciated and sharply debrided of biofilm, fibrin, slough, epidermis and subcutaneous tissue and fat layer sharply and excisionally nature with pickups and a 15 blade, postdebridement wound measurements 1.2 cm x 0.7 cm x 0.3 cm. Human amniotic allograft membrane was then sized and placed directly into the wound bed and covered with Adaptic, see expiration and lot number above. Wound to the left posterior heel was sharply and excisionally debrided down to and including subcutaneous tissue and fat layer. Was debrided sharply with pickups and a 15 blade. Postdebridement wound measurements 0.4 cm x 0.4 cm x 0.2 cm. Human amniotic membrane as above was placed directly to the wound bed and covered with Adaptic. Dressings consisting of Adaptic, sterile 4 x 4, Kerlix and Coban were then applied to the left lower extremity followed by application of a new cam boot. Tourniquet was then deflated and a prompt hyperemic response was noted to the distal digits of the left foot. Patient tolerated the procedure and anesthesia well and was transferred to the PACU with vital signs stable and vascular status intact. Following a period of postop monitoring he will be discharged home was given at home care instructions and follow-up.
[2022-10-02] MEDS: ceFAZolin 2,000 MG in sodium chloride 0.9% (plus) 50 ML 100 MG IV (13:09)
[2022-10-02] MEDS: lidocaine 1% INJ 20 mL INJECTION (13:15)
--- NOTE | 2022-10-02 13:25 | ANES.PREANE2 ---
Pre-Anesthetic Assessment Height/Weight: Height 1.8 m Weight 68.039 kg Temp Pulse Resp BP Pulse Ox O2 Del Method 97.4 F L 70 18 156/91 97 10/02/22 10:16 10/02/22 10:16 10/02/22 10:16 10/02/22 10:16 10/02/22 10:16 10/02/22 10:35 Preop Diagnosis: Painful hardware left ankle. Left foot wound with exposed tendon. Operation Date: 10/02/22 12:00 Proposed Procedures p Deep hardware removal, wound bed preparation and application of biologic graft left lower extremity 70630, 04561, 03091,?T84.84 XA,L97.422,(Left) - Andrade Scruggs DPM s Wound Bed Preparation(Left) - KYLEE Holguin application of biologic graft left lower extremity(Left) - Andrade Scruggs DPM Familial anesthetic complications: none Was Beta Shaan taken within 24 hours: N/A Was Clonidine taken within 24 hours: N/A Last intake: Intake Last Liquid Date 10/01/22 Last Liquid Time 19:00 Last Solid Date 10/01/22 Last Solid Time 19:00 Social No alcohol and No tobacco Exam alert, oriented x 3, clear to auscultation bilaterally and regular rate & rhythm Airway Submandibular: within normal limits Cervical ROM: within normal limits Mallampati: Class II Dentition: chipped Comments: Comments: Poor dentition Pulmonary MAC Metabolic chronic steroid Musc/skel Rheumatoid Arthritis Anesthetic Plan ASA status: 3 Anesthesia: General Medications/Allergies Home Medications Medication Instructions Recorded Confirmed Last Taken Type Cam Boot to the Left #1 ea 07/11/22 09/27/22 Unknown Rx Dressing Change Orders #1 ea 07/11/22 09/27/22 Unknown Rx doxycycline hyclate 100 mg capsule 100 mg PO BID 7 days #14 caps 09/27/22 10/02/22 10/02/22 Rx prednisone 10 mg tablet 10 mg PO DAILY 10/02/22 10/02/22 10/02/22 History Allergies Allergy/AdvReac Type Severity Reaction Status Date / Time No Known Allergies Allergy Verified 10/02/22 10:23 Current Medications Generic Name Dose Route Start Last Admin Trade Name Freq PRN Reason Stop Dose Admin Sodium Chloride 1,000 mls @ 30 mls/hr 10/02/22 10:30 10/02/22 10:42 Sodium Chloride 0.9% IV 10/03/22 10:29 30 mls/hr .Q24H YOLANDE Administration PFSH Anesthesia Medical History 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
--- NOTE | 2022-10-02 13:56 | SUR.OPER ---
1315 DR. CERDA INJECTED 20ML SENSORCAINE 0.5% INTO LEFT ANKLE AND 10ML 1% LIDOCAINE INTO LEFT ANKLE
--- NOTE | 2022-10-02 13:57 | XR_ITS ---
WS: [id number] XR ankle LT 2V [id number] REASON FOR EXAM: post op FINDINGS: Previous complex fracture dislocation of the left ankle. Plate and screw fixation of comminuted distal left fibular fracture. Oblique screw fixation of medial malleolar fracture. Long transverse screw fixation of the tibia and fibula through the syndesmosis. Fracture fragments and surgical appliances remain in proper position and alignment and unchanged comp ared to 09/27/2022. No new findings. XR/XR ankle LT 2V [id number] IMPRESSION: Stable complex left ankle fracture/dislocation with fixation.
--- NOTE | 2022-10-02 15:31 | ANE.PACU2 ---
Inpatient post-anesthesia follow up: Airway intact: Yes Vital signs: Temperature 97.3 F Pulse Rate 68 Respiratory Rate 18 Blood Pressure 128/73 Pulse Oximetry 97 Oxygen Delivery Me thod Room Air Oxygen Flow Rate 6 Fraction of Inspir ed Oxygen Hydration adequate: Yes Nausea and vomiting: No Pain level: 1 Mental status: Baseline
== END 2022-10-02 15:00 | disposition home or self-care (01) ==
PROVIDERS: PCP Family Medicine; Visit Provider Podiatrist Foot & Ankle Surgery
PROC: (CPT 15004; principal; 2022-10-02 12:00)
PROC: (CPT 15004; 2022-10-02 12:00)
PROC: (CPT 15004; 2022-10-02 12:00)
DX: T84.84XA Pain due to internal orthopedic prosthetic devices, implants and grafts, initial encounter (principal); G89.18 Other acute postprocedural pain; S91.302A Unspecified open wound, left foot, initial encounter; Y83.8 Other surgical procedures as the cause of abnormal reaction of the patient, or of later complication, without mention of misadventure at the time of the procedure; W55.82XA Struck by other mammals, initial encounter
CPT/HCPCS: 15004; 15271; 20680; 73600; J0690; J2704; J3010; J3490; J7030; Q4154

== ENCOUNTER → 2022-10-10 13:12 | Outpatient (BNVA) | payer MEDICARE, MEDICAID, SELFPAY | PROVIDERS: PCP Family Medicine; Visit Provider Podiatrist Foot & Ankle Surgery | DX: W55.89XD Other contact with other mammals, subsequent encounter (principal); S82.852 Displaced trimalleolar fracture of left lower leg; Z98.890 Other specified postprocedural states; L97.322 Non-pressure chronic ulcer of left ankle with fat layer exposed; L97.523 Non-pressure chronic ulcer of other part of left foot with necrosis of muscle | CPT/HCPCS: 99213 ==

== ENCOUNTER → 2022-10-23 14:00 | Outpatient (BNVA) | payer MEDICARE, MEDICAID, SELFPAY | PROVIDERS: PCP Family Medicine; Visit Provider Podiatrist Foot & Ankle Surgery | DX: S82.852 Displaced trimalleolar fracture of left lower leg (principal); L97.322 Non-pressure chronic ulcer of left ankle with fat layer exposed; L97.523 Non-pressure chronic ulcer of other part of left foot with necrosis of muscle; W55.89XD Other contact with other mammals, subsequent encounter | CPT/HCPCS: 11042 ==

== ENCOUNTER → 2022-11-07 15:04 | Outpatient (BNVA) | payer MEDICARE, SELFPAY | PROVIDERS: PCP Family Medicine; Visit Provider Podiatrist Foot & Ankle Surgery | DX: Z98.890 Other specified postprocedural states (principal); S82.852 Displaced trimalleolar fracture of left lower leg; W55.89XD Other contact with other mammals, subsequent encounter; L97.322 Non-pressure chronic ulcer of left ankle with fat layer exposed; L97.523 Non-pressure chronic ulcer of other part of left foot with necrosis of muscle | CPT/HCPCS: 99213 ==

== ENCOUNTER → 2022-11-27 15:08 | Outpatient (BNVA) | payer MEDICARE, SELFPAY | PROVIDERS: PCP Family Medicine; Visit Provider Podiatrist Foot & Ankle Surgery | DX: S82.852 Displaced trimalleolar fracture of left lower leg (principal); W55.89XD Other contact with other mammals, subsequent encounter; L97.322 Non-pressure chronic ulcer of left ankle with fat layer exposed; L97.523 Non-pressure chronic ulcer of other part of left foot with necrosis of muscle | CPT/HCPCS: 11042 ==

== ENCOUNTER → 2022-12-11 14:13 | Outpatient (BNVA) | payer MEDICARE, SELFPAY | PROVIDERS: PCP Family Medicine; Visit Provider Podiatrist Foot & Ankle Surgery | DX: Z51.89 Encounter for other specified aftercare (principal); S82.852 Displaced trimalleolar fracture of left lower leg; L97.322 Non-pressure chronic ulcer of left ankle with fat layer exposed; L97.523 Non-pressure chronic ulcer of other part of left foot with necrosis of muscle; W55.89XD Other contact with other mammals, subsequent encounter | CPT/HCPCS: 99214 ==

== ENCOUNTER → 2023-01-16 13:46 | Outpatient (BNVA) | payer MEDICARE, SELFPAY | PROVIDERS: PCP Family Medicine; Visit Provider Podiatrist Foot & Ankle Surgery | DX: S82.852 Displaced trimalleolar fracture of left lower leg (principal); L97.322 Non-pressure chronic ulcer of left ankle with fat layer exposed; L97.523 Non-pressure chronic ulcer of other part of left foot with necrosis of muscle; W55.89XD Other contact with other mammals, subsequent encounter | CPT/HCPCS: 99214 ==

== ENCOUNTER → 2023-03-25 14:41 | Outpatient (BNVA) | payer MEDICARE, SELFPAY | PROVIDERS: PCP Family Medicine; Visit Provider Podiatrist Foot & Ankle Surgery | DX: S82.852D Displaced trimalleolar fracture of left lower leg, subsequent encounter for closed fracture with routine healing; W55.89XD Other contact with other mammals, subsequent encounter | CPT/HCPCS: 99213 ==